=== PATIENT | female | born 1970 | race Caucasian/White ===

== ENCOUNTER → 2016-03-27 | Outpatient (CLI) | payer BC ==
--- NOTE | 2016-03-27 14:58 | CT ---
EXAMINATION TYPE: CT chest w con DATE OF EXAM: 03/27/2016 2:44 PM COMPARISON: NONE HISTORY: Dyspnea CT DLP: 804 mGycm. Automated Exposure Control for Dose Reduction was Utilized. TECHNIQUE: CT scan of the thorax is performed following with IV Contrast, patient injected with 100 ml mL of Omnipaque 300. FINDINGS: LUNGS: Small area of linear atelectasis in the lingula is present seen best coronal image 28 otherwis e the lungs are grossly clear, there is no concerning parenchymal mass or nodule identified. There is no pleural effusion or pneumothorax seen bilaterally. The tracheobronchial tree is patent. MEDIASTINUM: There are no greater than 1 cm hilar or mediastinal lymph nodes. There are slightly pro minent but subcentimeter paracarinal and subcarinal lymph nodes. No cardiomegaly or pericardial effus ion is seen. OTHER: There is 13 x 6 mm oval low dense lesion left hepatic dome presumed benign. Spine is mildly en larged at 13.7 cm on axial image 54. IMPRESSION: No significant acute or chronic pulmonary process. Results communicated to ordering physician via telephone as requested at time of dictation. Patient i nstructed to return to physician office for further treatment. A Document Only message has been documented for Syd Mason MD in the [employer] system on 03/27/2016 2:56 PM, Message ID [id number].
== END | disposition home or self-care (01) ==
LOC: RADCTMAIN 13:56
PROVIDERS: ATTEND Family Medicine
DX: R06.00 Dyspnea, unspecified (principal)
CPT/HCPCS: 71260; Q9967

== ENCOUNTER → 2016-09-05 | Outpatient (CLI) | payer BC ==
--- NOTE | 2016-09-06 08:59 | MM ---
Reason for exam: screening (asymptomatic). Last mammogram was performed 1 year and 3 months ago. History: Patient is postmenopausal and is nulliparous. Benign excisional biopsy of the left breast, 2005. Taking estrogen for 2 years beginning at age 40. Physical Findings: A clinical breast exam by your physician is recommended on an annual basis and results should be correlated with mammographic findings. MG Screening Mammo w CAD Bilateral CC and MLO view(s) were taken. Prior study comparison: June 05, 2015, bilateral MG screening mammo w CAD. April 09, 2013, CAD bilateral diagnostic mammogram. The breast tissue is extremely dense which could obscure a lesion on mammography. No significant changes when compared with prior studies. ASSESSMENT: Benign, BI-RAD 2 RECOMMENDATION: Routine screening mammogram of both breasts in 1 year.
== END | disposition home or self-care (01) ==
LOC: RADMAMWWP 13:44
PROVIDERS: ATTEND Family Medicine
DX: Z12.31 Encounter for screening mammogram for malignant neoplasm of breast (principal)

== ENCOUNTER → 2017-11-25 | Outpatient (CLI) | payer BC ==
--- NOTE | 2017-11-26 09:58 | MM ---
Reason for exam: screening (asymptomatic). Last mammogram was performed 1 year and 3 months ago. History: Patient is postmenopausal and is nulliparous. Benign excisional biopsy of the left breast, 2005. Taking estrogen for 2 years beginning at age 40. Physical Findings: A clinical breast exam by your physician is recommended on an annual basis and results should be correlated with mammographic findings. MG Screening Mammo w CAD Bilateral CC and MLO view(s) were taken. Prior study comparison: September 05, 2016, bilateral MG screening mammo w CAD. June 05, 2015, bilateral MG screening mammo w CAD. The breast tissue is heterogeneously dense. This may lower the sensitivity of mammography. No suspicious abnormality. No significant changes when compared with prior studies. ASSESSMENT: Negative, BI-RAD 1 RECOMMENDATION: Routine screening mammogram of both breasts in 1 year.
== END | disposition home or self-care (01) ==
LOC: RADMAMWWP 16:19
PROVIDERS: ATTEND Internal Medicine
DX: Z12.31 Encounter for screening mammogram for malignant neoplasm of breast (principal)
CPT/HCPCS: 77067

== ENCOUNTER 2018-06-05 12:22 | Emergency (ER) | payer BC ==
[2018-06-05 12:29] VITALS: TEMP 98.5
[2018-06-05 13:31] LABS: Basophils # (A) 0.1 k/uL (0-0.2); Basophils % (A) 1 %; Eosinophils # (A) 0.4 k/uL (0-0.7); Eosinophils % (A) 4 %; HGB 13.5 gm/dL (11.4-16.0); Lymphocytes # (A) 1.6 k/uL (1.0-4.8); Lymphocytes % (A) 20 %; MCH 27.7 pg (25.0-35.0); MCHC 33.7 g/dL (31.0-37.0); MCV 82.1 fL (80.0-100.0); Mean Platelet Volume 7.1; Monocytes # (A) 0.5 k/uL (0-1.0); Monocytes % (A) 6 %; Neutrophils # (A) 5.6 k/uL (1.3-7.7); Neutrophils % (A) 68 %; Platelet Count 299 k/uL (150-450); RBC 4.87 m/uL (3.80-5.40); RDW 13.1 % (11.5-15.5); WBC 8.2 k/uL (3.8-10.6)
[2018-06-05 13:41] LABS: ALT 33 U/L (9-52); AST 20 U/L (14-36); Albumin 4.3 g/dL (3.5-5.0); Alkaline Phosphatase 84 U/L (38-126); Amylase 73 U/L (30-110); Anion Gap 8 mmol/L; Blood Urea Nitrogen 11 mg/dL (7-17); Calcium 9.7 mg/dL (8.4-10.2); Carbon Dioxide 28 mmol/L (22-30); Chloride 104 mmol/L (98-107); Glucose 95 mg/dL (74-99); Lipase 361 U/L (23-300); Potassium 4.2 mmol/L (3.5-5.1); Sodium 140 mmol/L (137-145); Total Bilirubin 0.6 mg/dL (0.2-1.3); Total Protein 6.8 g/dL (6.3-8.2)
[2018-06-05 13:51] LABS: Appearance,Urine Clear (Clear); Bilirubin,Urine Negative (Negative); Blood,Urine Negative (Negative); Color,Urine Yellow; Glucose,Urine (UA) Negative (Negative); Ketones,Urine Negative (Negative); Leukocyte Esterase,Urine Negative (Negative); Nitrite,Urine Negative (Negative); Protein,Urine Negative (Negative); Specific Gravity,Urine 1.014 (1.001-1.035); Urobilinogen,Urine <2.0 mg/dL (<2.0)
--- NOTE | 2018-06-05 13:53 | CT ---
EXAMINATION TYPE: CT abdomen pelvis w con DATE OF EXAM: 06/05/2018 COMPARISON: 03/11/2009 INDICATION: LUQ pain DLP: 1063.2 mGycm, Automated exposure control for dose reduction was used. CONTRAST: 100 mL of Isovue 300. Study performed without Oral Contrast TECHNIQUE: Axial images were obtained from above the diaphragm to the pubic rami in the axial plane a t 5 mm thick sections. Reconstructed images are reviewed on the computer in the coronal plane. FINDINGS: Limited CT sections are obtained the lung bases. The lung bases are clear. CT ABDOMEN: There is some inflammatory changes in the left upper quadrant. This appears to surround t he proximal descending colon. However, some inflammatory changes extend towards the tail of the pancr eas which may has some minimal fluid adjacent. Differential diagnosis would include pancreatitis of t he tail of the pancreas and colitis versus diverticulitis of the proximal descending colon. Acute div erticulitis is favored.. Correlate with patient's symptoms and laboratory findings. Liver: Normal Spleen: Normal Pancreas: Small amount of fluid may be at the tail of the pancreas with some mild inflammatory change s extending towards the adjacent splenic flexure. Adrenal glands: The adrenal glands are normal. Gallbladder: Normal Kidneys: No masses are evident. No hydronephrosis is present. No cysts are present. Delayed images were obtained through the kidneys, which remain unremarkable. Aorta: Vascular calcification is within the aorta. Inferior vena cava: Normal. CT PELVIS: There are inflammatory changes adjacent to the splenic flexure. Findings could be related to acute di verticulitis. Diverticulum is at the splenic flexure. Some colitis could be considered. Inflammatory change could be extension from the tail of the pancreas however. Study is performed without oral cont rast limiting bowel evaluation. Multiple diverticuli are through the sigmoid colon. Appendix: Normal as visualized. Urinary bladder: Normal. Genitourinary structures: Uterus and ovaries are absent. Osseous structures: No suspicious lytic or sclerotic lesions. IMPRESSIONS: 1. Inflammatory changes at the splenic flexure extending to the tail of the pancreas. Acute divertic ulitis is suspected without abscess formation. Differential could include colitis and pancreatitis at the tail of the pancreas. Correlate with patient's clinical and laboratory results.
[2018-06-05] MEDS ORDERED: AMOXIC-POT CLAV 875MG STARTER 2 EACH TABLET PO STA (14:19)
--- NOTE | 2018-06-05 14:21 | ED ---
Abdominal Pain HPI - General Chief Complaint: Abdominal Pain Stated Complaint: abd pain Time Seen by Provider: 06/05/18 12:31 Source: patient Mode of arrival: ambulatory Limitations: no limitations - History of Present Illness Initial Comments: 47-year-old female presenting today for abdominal pain 3 weeks. Patient states she has had pain in the mid back wrapping to the left side of the abdomen she states it fluctuates in intensity from 3 to about a 9. She states her father, likely diverticulitis because it runs in the family. Patient states it stabbing sometimes feel like a twisting pain shift as a chest pain dyspnea dysuria or urgency frequency or hematuria. Patient states she does have history of kidney stones however this does not feel similar to the pain. Patient states she has a CT with contrast scheduled as well as a colonoscopy however she did not want to wait any longer for the workup and presented to department for evaluation. Patient states the pain had increased and is more so prompted the visit. Remaining ROS (-) Upon arrival pt appears well. No signs of toxicity or distress grossly. - Related Data Home Medications Medication Instructions Recorded Confirmed Adrenal Gland Supplement 1 tab PO DAILY 06/05/18 06/05/18 Ascorbic Acid [Vitamin C] 500 mg PO DAILY 06/05/18 06/05/18 Fish Oil/Dha/Epa [Fish Oil 1,200 1 cap PO DAILY 06/05/18 06/05/18 mg Fish Oil] Prasterone (Dhea) [Dhea] 50 mg PO DAILY 06/05/18 06/05/18 Pyridoxine HCl (Vitamin B6) 100 mg PO DAILY 06/05/18 06/05/18 [Vitamin B-6] Spironolactone 100 mg PO DAILY 06/05/18 06/05/18 Previous Rx's Medication Instructions Recorded Amoxicillin/Potassium Clav 1 tab PO Q12HR 14 Days #28 tab 06/05/18 [Augmentin 875-125 Tablet] Allergies Allergy/AdvReac Type Severity Reaction Status Date / Time bupropion HCl Allergy Rash/Hives Verified 06/05/18 13:17 [From Wellbutrin] gluten Allergy Unknown Verified 06/05/18 13:17 wheat Allergy Unknown Verified 06/05/18 13:17 Review of Systems ROS Statement: Those systems with pertinent positive or pertinent negative responses have been documented in the HPI. ROS Other: All systems not noted in ROS Statement are negative. Past Medical History Past Medical History: Asthma, GERD/Reflux Additional Past Medical History / Comment(s): Interstitial Cystitis History of Any Multi-Drug Resistant Organisms: None Reported Past Surgical History: Hysterectomy Additional Past Surgical History / Comment(s): Hiatal hernia,. Marnie, 2009, EGD/colonoscopy 02/15/14 Past Anesthesia/Blood Transfusion Reactions: Previous Problems w/ Anesthesia Additional Past Anesthesia/Blood Transfusion Reaction / Comment(s): Trouble breathing after intubation removed with diff breathing and swallowing Past Psychological History: No Psychological Hx Reported Smoking Status: Former smoker Past Alcohol Use History: Occasional, Rare Past Drug Use History: None Reported - Past Family History Father Family Medical History: Deep Vein Thrombosis (DVT) General Exam - General Exam Comments Initial Comments: General: The patient is awake and alert, in no distress, and does not appear acutely ill. Eye: +3 mm pupils are equal, round and reactive to light, extra-ocular movements are intact. No APD No nystagmus. There is normal conjunctiva bilaterally. No signs of icterus. Ears, nose, mouth and throat: There are moist mucous membranes and no oral lesions. Neck: The neck is supple, there is no tenderness or JVD. Cardiovascular: There is a regular rate and rhythm. No murmur, rub or gallop is appreciated. Respiratory: Lungs are clear to auscultation, respirations are non-labored, breath sounds are equal. No wheezes, stridor, rales, or rhonchi. Gastrointestinal: No noted diaphoresis, jaundice, pallor, protecting postures or squirming. Symmetrical pigmentation of abdomen without signs of inflammation. Umbilicus mildline, inverted without swelling. No dilated veins. Abdomen contour obese, no noted abdominal distention. No visible masses. No peristalsis, aortic pulsations, or ventral hernia. Bowel sounds audible in all 4 quadrants, unremarkable. No friction rubs or venous hums. No epigastic, hepatic or abdominal bruits. Abdominal pain with rebound tenderness in the LLQ, no other area of tenderness or pain. Liver edge, not palpable. Spleen edge, right and left kidney not palpable. Superior bladder margin non-tender. Special Testing: Negative [place], Rovsing, McBurney, Ellie, cutaneous hyperesthesia. Iliopsoas and obturator tests negative bilaterally. Negative Heel Jar test. No CVA tenderness. Digital rectal exam deferred. Negative lindo turners or cullens sign Musculoskeletal: Normal ROM, no tenderness. Strength 5/5. Sensation intact. Pulses equal bilaterally 2+. Neurological: A&O x 3. CN II-XII intact, There are no obvious motor or sensory deficits. Coordination appears grossly intact. Speech is normal. Skin: Skin is warm and dry and no rashes or lesions are noted. Psychiatric: Cooperative, appropriate mood & affect, normal judgment. NIH Stroke Scale/Score 06/05/2018 1A: Level of consciousness > 0 = Alert; keenly responsive 1B: Ask month and age > 0 = Both questions right 1C: 'Blink eyes' & 'squeeze hands' > 0 = Performs both tasks 2: Horizontal extraocular movements > 0 = Normal 3: Visual gomez > 0 = No visual loss 4: Facial palsy > 0 = Normal symmetry 5A: Left arm motor drift > 0 = No drift for 10 seconds 5B: Right arm motor drift > 0 = No drift for 10 seconds 6A: Left leg motor drift > 0 = No drift for 5 seconds 6B: Right leg motor drift > 0 = No drift for 5 seconds 7: Limb Ataxia > 0 = No ataxia 8: Sensation > 1 = Mild-moderate loss: less sharp/more dull 9: Language/aphasia > 0 = Normal; no aphasia 10: Dysarthria > 0 = Normal 11: Extinction/inattention > 0 = No abnormality Score: 1 Limitations: no limitations Course Vital Signs 06/05/18 06/05/18 06/05/18 12:26 14:33 16:24 Temperature 98.5 F Pulse Rate 80 Respiratory 20 Rate Blood Pressure 177/109 167/94 165/111 O2 Sat by Pulse 99 Oximetry - Reevaluation(s) Reevaluation #1: At 3:44PM patient states she has the revision, she states this happened last week and resulted with water. Patient denies any other deficits. NIH 1 patient states it seemed as though she had a slight difference to palpation of the left upper arm compared to the right upper arm. CT, CT angiogram were obtained at this time. I discussed the case immediately with attending provider Dr. Verdin Reevaluation #2: Pt states 30 minutes later that she is symptoms free. NIH 0. Pt BP elevated. EKG obtained, compared to results of holter monitor report which states patient has baseline RBBB. No ST elevation or depression. CXR WNL. Reevaluation #3: Spoke with Dr. Street at [facility], she accepted transfer pending discussion with interventional neurologist Dr. Monteiro. Dr. Monteiro was paged at 16:15 06/05/18 16:15 Medical Decision Making - Medical Decision Making 47 year old female presenting today for chief complaint of abdominal pain x 3 weeks. Patient had an discharge she was complaining of diplopia. I did discuss the case with attending provider immediately, Dr Verdin. Patient was hypertensive at this time. Patient was unable to decipher whether it was 1 eye or both. NIH 1. Patient sent down for CTA, CT without contrast. No acute abnormalities. I spoke with neuro interventionalist Dr. Muniz who recommended aspirin and MRI at the transferring facility. EKG revealed a RBBB, after reviewing chart this appears to have be patient baseline. Troponin (-). She was given oral Augmentin earlier when patient was scheduled for discharge. Symptoms resolved. Suspected ddx include hypertensive emergency, TIA, MS. I discussed findings with patient. Patient is agreeable transfer to [facility]. I spoke with Dr Street who accepted patient transfer. Pt is agreeable with transfer. Pt discharged appearing well. - Lab Data Result diagrams: 06/05/18 13:05 06/05/18 13:05 Lab Results 06/05/18 06/05/18 06/05/18 Range/Units 13:05 13:05 13:05 WBC 8.2 (3.8-10.6) k/uL RBC 4.87 (3.80-5.40) m/uL Hgb 13.5 (11.4-16.0) gm/dL Hct 40.0 (34.0-46.0) % MCV 82.1 (80.0-100.0) fL MCH 27.7 (25.0-35.0) pg MCHC 33.7 (31.0-37.0) g/dL RDW 13.1 (11.5-15.5) % Plt Count 299 (150-450) k/uL Neutrophils % 68 % Lymphocytes % 20 % Monocytes % 6 % Eosinophils % 4 % Basophils % 1 % Neutrophils # 5.6 (1.3-7.7) k/uL Lymphocytes # 1.6 (1.0-4.8) k/uL Monocytes # 0.5 (0-1.0) k/uL Eosinophils # 0.4 (0-0.7) k/uL Basophils # 0.1 (0-0.2) k/uL Sodium 140 (137-145) mmol/L Potassium 4.2 (3.5-5.1) mmol/L Chloride 104 (98-107) mmol/L Carbon Dioxide 28 (22-30) mmol/L Anion Gap 8 mmol/L BUN 11 (7-17) mg/dL Creatinine 0.63 (0.52-1.04) mg/dL Est GFR (CKD-EPI)AfAm >90 (>60 ml/min/1.73 sqM) Est GFR (CKD-EPI)NonAf >90 (>60 ml/min/1.73 sqM) Glucose 95 (74-99) mg/dL Calcium 9.7 (8.4-10.2) mg/dL Total Bilirubin 0.6 (0.2-1.3) mg/dL AST 20 (14-36) U/L ALT 33 (9-52) U/L Alkaline Phosphatase 84 (38-126) U/L Troponin I (0.000-0.034) ng/mL Total Protein 6.8 (6.3-8.2) g/dL Albumin 4.3 (3.5-5.0) g/dL Amylase 73 (30-110) U/L Lipase 361 H (23-300) U/L Urine Color Yellow Urine Appearance Clear (Clear) Urine pH 6.0 (5.0-8.0) Ur Specific [place] 1.014 (1.001-1.035) Urine Protein Negative (Negative) Urine Glucose (UA) Negative (Negative) Urine Ketones Negative (Negative) Urine Blood Negative (Negative) Urine Nitrite Negative (Negative) Urine Bilirubin Negative (Negative) Urine Urobilinogen <2.0 (<2.0) mg/dL Ur Leukocyte Esterase Negative (Negative) 06/05/18 Range/Units 13:05 WBC (3.8-10.6) k/uL RBC (3.80-5.40) m/uL Hgb (11.4-16.0) gm/dL Hct (34.0-46.0) % MCV (80.0-100.0) fL MCH (25.0-35.0) pg MCHC (31.0-37.0) g/dL RDW (11.5-15.5) % Plt Count (150-450) k/uL Neutrophils % % Lymphocytes % % Monocytes % % Eosinophils % % Basophils % % Neutrophils # (1.3-7.7) k/uL Lymphocytes # (1.0-4.8) k/uL Monocytes # (0-1.0) k/uL Eosinophils # (0-0.7) k/uL Basophils # (0-0.2) k/uL Sodium (137-145) mmol/L Potassium (3.5-5.1) mmol/L Chloride (98-107) mmol/L Carbon Dioxide (22-30) mmol/L Anion Gap mmol/L BUN (7-17) mg/dL Creatinine (0.52-1.04) mg/dL Est GFR (CKD-EPI)AfAm (>60 ml/min/1.73 sqM) Est GFR (CKD-EPI)NonAf (>60 ml/min/1.73 sqM) Glucose (74-99) mg/dL Calcium (8.4-10.2) mg/dL Total Bilirubin (0.2-1.3) mg/dL AST (14-36) U/L ALT (9-52) U/L Alkaline Phosphatase (38-126) U/L Troponin I <0.012 (0.000-0.034) ng/mL Total Protein (6.3-8.2) g/dL Albumin (3.5-5.0) g/dL Amylase (30-110) U/L Lipase (23-300) U/L Urine Color Urine Appearance (Clear) Urine pH (5.0-8.0) Ur Specific [place] (1.001-1.035) Urine Protein (Negative) Urine Glucose (UA) (Negative) Urine Ketones (Negative) Urine Blood (Negative) Urine Nitrite (Negative) Urine Bilirubin (Negative) Urine Urobilinogen (<2.0) mg/dL Ur Leukocyte Esterase (Negative) - EKG Data EKG Comments: Ventricular rate 70 bpm, AL interval 162 ms, to administration 102 ms, QT/QTC 390/53 ms. Normal sinus there is incomplete right bundle branch block. Left anterior fascicular block noted. No ST elevation or depression.. Disposition Clinical Impression: Diverticulitis, Diplopia, TIA (transient ischemic attack), Elevated blood pressure reading Disposition: OTHER INSTITUTION NOT DEFINED Condition: Serious Instructions (If sedation given, give patient instructions): Diverticulitis ( ED), Diverticulitis Diet (ED) Additional Instructions: Please use medication as discussed. Please follow-up with family doctor on Mondays, please follow-up with gastroenterology physician in one week. Please return to emergency room if the symptoms are persistent, INCREASE OR WORSEN or for any other concerns. Prescriptions: Amoxicillin/Potassium Clav [Augmentin 875-125 Tablet] 1 tab PO Q12HR 14 Days #28 tab Is patient prescribed a controlled substance at d/c from ED?: No Referrals: Roxanne Hoover MD [Primary Care Provider] - 1-2 days Demetria Gant MD [STAFF PHYSICIAN] - 1-2 days Time of Disposition: 14:21 - Out of Hospital Transfer - Req. Specs Out of Hospital Transfer - Requested Specifics: Other Emergency Center ([facility])
[2018-06-05] MEDS ORDERED: HYDROcodone/APAP 5-325MG 1 EACH TAB PO STA (14:22)
--- NOTE | 2018-06-05 15:08 | CT ---
EXAMINATION TYPE: CT brain wo con DATE OF EXAM: 06/05/2018 COMPARISON: None INDICATION: Multiple episodes of HTN and visual disturbances DLP: 920.6 mGycm, Automated exposure control for dose reduction was used. CONTRAST: None. There is some contrast on board from the examination performed earlier in the afterno on. Optimal contrast for contrast study however does not appear to be present. CT of the brain is performed utilizing 3 mm thick sections through the posterior fossa and 3 mm thick sections through the remaining calvarium. Study is performed within 24 hours of arrival to the hosp ital. No abnormal hyperdensity is present to suggest an acute intracranial hemorrhage. No mass lesion is evident. No acute infarcts are evident. Ventricles and sulci are appropriate for the patient age. Paranasal sinuses and mastoid air cells within the [id number] are clear. IMPRESSIONS: 1. Normal CT Brain
--- NOTE | 2018-06-05 15:42 | CT ---
EXAMINATION TYPE: CT angio head neck DATE OF EXAM: 06/05/2018 HISTORY: Multiple episodes of HTN and visual disturbances COMPARISON: None CT DLP: 516.8 mGycm. Automated Exposure Control for Dose Reduction was Utilized. TECHNIQUE: CTA scan of the neck is performed with IV Contrast, patient injected with 65 mL of Isovue 370, axial images are obtained, coronal and sagittal reformatted images are reviewed. Source images and Three-D reconstructed images are created on an independent workstation and reviewed. FINDINGS: Carotid/Vascular Structures: There is a three-vessel arch. Vertebral arteries are codominant. Some pl aquing is present at the carotid bifurcations without significant flow-limiting stenosis. Internal ca rotid arteries at the skull base are unremarkable. [place] of [place]: Internal carotid arteries bifurcate normally into A1 and M1 segments. Left A1 segme nt may be somewhat hypoplastic distally on the source images but appears normal on Three-D reconstruc silvia images. The anterior communicating artery is patent. Middle cerebral artery branches appear unrem arkable. A2 segments are normal. Vertebral basilar system appears normal. The posterior cerebral vasc ulature is normal. Posterior communicating arteries are not identified. Other: Limited CT sections are obtained the lung apices which are clear. IMPRESSION: 1. No significant flow-limiting stenosis at the carotid bifurcations. Mild plaquing with less than 50 % narrowing is present. 2. Normal [place] of [place]
[2018-06-05] MEDS ORDERED: hydrALAZINE HCL 20 MG/ML 1 ML VIAL IVP STA (15:53)
--- NOTE | 2018-06-05 16:07 | XR ---
EXAMINATION TYPE: XR chest 2V DATE OF EXAM: 06/05/2018 COMPARISON: 12/23/2011 INDICATION: Altered mental status hypertension blurred vision TECHNIQUE: Frontal and lateral views of the chest are obtained. FINDINGS: The heart size is normal. The pulmonary vasculature is normal. The lungs are clear. IMPRESSION: 1. No acute pulmonary process.
[2018-06-05] MEDS ORDERED: ASPIRIN 325 MG TAB PO STA (16:50)
[2018-06-05 18:11] VITALS: RESP 18
[2018-06-05 18:12] VITALS: BP 116/94; PULSE 101
== END 2018-06-05 18:14 | disposition other institution (70) ==
LOC: EC 12:22
DX: G45.9 Transient cerebral ischemic attack, unspecified (principal); R29.701 NIHSS score 1; K57.92 Diverticulitis of intestine, part unspecified, without perforation or abscess without bleeding; H53.2 Diplopia; I10 Essential (primary) hypertension; I45.10 Unspecified right bundle-branch block; Z87.891 Personal history of nicotine dependence; Z79.899 Other long term (current) drug therapy; Z88.8 Allergy status to other drugs, medicaments and biological substances; Z91.018 Allergy to other foods
CPT/HCPCS: 96374 ×2; 99285 ×2; 36415; 93005; 80053; 82150; 83690; 84484; 85025; 81003; 87086; 71046; 70496; 70450; 70498; 74177; J0360; Q9967 ×2

== ENCOUNTER 2018-06-26 06:17 | Day surgery (SDC) | payer BC ==
[2018-06-24 10:27] VITALS: BMI 31.8
--- NOTE | 2018-06-25 20:18 | P.GSHP ---
History of Present Illness H&P Date: 06/26/18 CHIEF COMPLAINT: Colon screen HISTORY OF PRESENT ILLNESS: The patient is a 47-year-old female who presents for colon screen. Lower endoscopy was offered for further evaluation and management. PAST MEDICAL HISTORY: Please see list. PAST SURGICAL HISTORY: Please see list. MEDICATIONS: Please see list. ALLERGIES: Please see list. SOCIAL HISTORY: No illicit drug use FAMILY HISTORY: No reports of Crohn disease or ulcerative colitis. REVIEW OF ORGAN SYSTEMS: CONSTITUTIONAL: No reports of fevers or chills. PHYSICAL EXAM: VITAL SIGNS: Stable GENERAL: Well-developed pleasant in no acute distress. HEENT: No scleral icterus. Extraocular movements grossly intact. Moist buccal mucosa. NECK: Supple without lymphadenopathy. CHEST: Unlabored respirations. Equal bilateral excursions. CARDIOVASCULAR: Regular rate and rhythm. Distal 2+ pulses. ABDOMEN: Soft, nontender, nondistended. MUSCULOSKELETAL: No clubbing, cyanosis, or edema. ASSESSMENT: 1. Colon screen. PLAN: 1. Recommend proceeding with a lower endoscopy Past Medical History Past Medical History: Asthma, Fibromyalgia, GERD/Reflux, Hypertension, Thyroid Disorder Additional Past Medical History / Comment(s): Interstitial Cystitis, migraines, fluctuating BP, palpitations, diverticulitis, borderline diabetic-watches diet, History of Any Multi-Drug Resistant Organisms: None Reported Past Surgical History: Bariatric Surgery, Bladder Surgery, Hernia Repair, Hysterectomy Additional Past Surgical History / Comment(s): Hiatal hernia repair, Lapband/later removed, EGD/colonoscopy Past Anesthesia/Blood Transfusion Reactions: Previous Problems w/ Anesthesia, Family History of Problems w/ Anesthesia, Motion Sickness Additional Past Anesthesia/Blood Transfusion Reaction / Comment(s): Trouble breathing after intubation tube removed with diff breathing and swallowing (general anesthesia). "mom gets real cold when coming out" Smoking Status: Former smoker - Past Family History Mother Family Medical History: Cancer Father Family Medical History: Cancer, Deep Vein Thrombosis (DVT) Medications and Allergies Home Medications Medication Instructions Recorded Confirmed Type Ascorbic Acid [Vitamin C] 500 mg PO DAILY 06/05/18 06/24/18 History Fish Oil/Dha/Epa [Fish Oil 1,200 1 cap PO DAILY 06/05/18 06/24/18 History mg Fish Oil] Pyridoxine HCl (Vitamin B6) 100 mg PO DAILY 06/05/18 06/24/18 History [Vitamin B-6] Spironolactone 100 mg PO DAILY 06/05/18 06/24/18 History Berbine 1 cap PO BID 06/24/18 06/24/18 History Levothyroxine Sodium [Synthroid] 25 mcg PO DAILY 06/24/18 06/24/18 History Multivitamins, Thera [Multivitamin 1 tab PO DAILY 06/24/18 06/24/18 History (formulary)] Allergies Allergy/AdvReac Type Severity Reaction Status Date / Time bupropion HCl Allergy Rash/Hives Verified 06/24/18 10:15 [From Wellbutrin] gluten Allergy Unknown Verified 06/24/18 10:15 wheat Allergy Unknown Verified 06/24/18 10:15
[~2018-06-26 06:17] MED LIST: DEXAMETHASONE SOD PHOSPHATE 10 MG/ML 1 ML VIAL IV ONE; HYDROmorphone 0.5 MG/0.5 ML SYRINGE IVP PRN; LACTATED RINGERS 1,000 ML IV SCH; LIDOCAINE 1% 20 ML VIAL (10MG/ML) FOR IV START INTRADERMA PRN; MIDAZOLAM (PF) 2 MG/2 ML VIAL IV PRN; ONDANSETRON 4 MG/2 ML VIAL IVP ONE; SCOPOLAMINE 1.5MG/72HR PATCH TRANSDERM ONE
[2018-06-26 06:51] VITALS: TEMP 97.2
[2018-06-26 06:56] LABS: Glucose,Whole Blood 99 mg/dL (75-99)
[2018-06-26] MEDS ORDERED: PROPOFOL 10 MG/ML 20 ML VIAL IV ONE (07:03)
--- NOTE | 2018-06-26 07:15 | P.HPADDEND ---
H&P Addendum H&P Addendum Date: 06/26/18 Patient reports having diverticulitis 3 weeks ago. No current abdominal pain. No fevers or chills. Increased risk for perforation described with proceeding with colonoscopy. Patient agreed to proceed.
--- NOTE | 2018-06-26 07:46 | P.PCN ---
Date of Procedure: 06/26/18 Description of Procedure: PREOPERATIVE DIAGNOSIS: Personal history of colon polyps. History of diverticulitis POSTOPERATIVE DIAGNOSIS: Personal history of colon polyps. History of diverticulitis Ulcerative colitis, diffuse, chronic OPERATION: Colonoscopy to the ileocecal valve and appendiceal orifice. Colonoscopy with multiple cold forceps biopsies. SURGEON: Stella Cazares MD. ANESTHESIA: MAC. INDICATIONS: The patient is a 47-year-old female who presents for colonoscopy screening. Her last colonoscopy was 5 years ago. Benefits and risks were described and informed consent was obtained. DESCRIPTION OF PROCEDURE: The patient had undergone Suprep. She had been brought into the operating room and laid in the left lateral decubitus position. After adequate intravenous sedation, the rectum was examined with 2% lidocaine jelly. No external hemorrhoids were encountered. The rectal tone was within normal limits. No lesions were palpated in the rectal vault. An Olympus colonoscope was advanced until the ileocecal valve and appendiceal orifice were clearly viewed. The prep was good. Moderate large mouth sigmoid diverticulosis was encountered with evidence of recent diverticulitis. No colonic polyps were found. Small punctate cryptic mucosal lesions were found throughout the colon consistent with colitis with cold forceps biopsies obtained along the ileocecal valve and ascending colon. No internal hemorrhoids were found. The colon was desufflated. The patient had tolerated the procedure well. Withdrawal time was over 6 minutes. FINDINGS: Aronchick preparation quality scale 2 (1-5) No internal hemorrhoids No external hemorrhoids No arteriovenous malformations Small punctate cryptic mucosal lesions were found throughout the colon consistent with colitis with cold forceps biopsies obtained along the ileocecal valve and ascending colon. No adenomatous polyps Moderate large mouth sigmoid diverticulosis was encountered with evidence of recent diverticulitis. RECOMMENDATIONS: Repeat colonoscopy in 5 years, 2023 Plan - Discharge Summary Discharge Rx Participant: No New Discharge Prescriptions: No Action Pyridoxine HCl (Vitamin B6) [Vitamin B-6] 100 mg PO DAILY Ascorbic Acid [Vitamin C] 500 mg PO DAILY Spironolactone 100 mg PO DAILY Fish Oil/Dha/Epa [Fish Oil 1,200 mg Fish Oil] 1 cap PO DAILY Multivitamins, Thera [Multivitamin (formulary)] 1 tab PO DAILY Berbine 1 cap PO BID Levothyroxine Sodium [Synthroid] 25 mcg PO DAILY Discharge Medication List Ascorbic Acid [Vitamin C] 500 mg PO DAILY 06/05/18 [History] Fish Oil/Dha/Epa [Fish Oil 1,200 mg Fish Oil] 1 cap PO DAILY 06/05/18 [History] Pyridoxine HCl (Vitamin B6) [Vitamin B-6] 100 mg PO DAILY 06/05/18 [History] Spironolactone 100 mg PO DAILY 06/05/18 [History] Berbine 1 cap PO BID 06/24/18 [History] Levothyroxine Sodium [Synthroid] 25 mcg PO DAILY 06/24/18 [History] Multivitamins, Thera [Multivitamin (formulary)] 1 tab PO DAILY 06/24/18 [History] Follow up Appointment(s)/Referral(s): Stella Cazares MD [STAFF PHYSICIAN] - 07/15/18 Patient Instructions/Handouts: Ulcerative Colitis (DC), Diverticulosis Diet (GEN), Diverticulosis (ED) Activity/Diet/Wound Care/Special Instructions: Repeat colonoscopy in 5 years, 2023 Discharge Disposition: HOME SELF-CARE
[2018-06-26 07:59] VITALS: BP 112/76; PULSE 70; RESP 16
== END 2018-06-26 08:29 | disposition home or self-care (01) ==
LOC: ORWHC2ENDO 06:17
PROVIDERS: ATTEND Surgery Plastic and Reconstructive Surgery
DX: Z12.11 Encounter for screening for malignant neoplasm of colon (principal); K57.30 Diverticulosis of large intestine without perforation or abscess without bleeding; K51.90 Ulcerative colitis, unspecified, without complications; Z86.010 Personal history of colon polyps; J45.909 Unspecified asthma, uncomplicated; M79.7 Fibromyalgia; K21.9 Gastro-esophageal reflux disease without esophagitis; I10 Essential (primary) hypertension; E07.9 Disorder of thyroid, unspecified; Z87.891 Personal history of nicotine dependence; Z80.9 Family history of malignant neoplasm, unspecified; Z79.890 Hormone replacement therapy; Z79.899 Other long term (current) drug therapy; Z88.8 Allergy status to other drugs, medicaments and biological substances; Z91.018 Allergy to other foods
CPT/HCPCS: 88305; 45380; J2704

== ENCOUNTER 2019-05-31 22:23 | Emergency (ER) | payer OTHER ==
[2019-05-31 22:38] VITALS: RESP 18; TEMP 97.8
[2019-05-31] MEDS ORDERED: MORPHINE SULFATE 4 MG/ML SYRINGE IV STA (23:07)
[2019-05-31] MEDS ORDERED: SODIUM CHLORIDE 0.9% 1,000 ML IV STA (23:07)
[2019-05-31 23:32] LABS: Basophils % (A) 0 %; Eosinophils # (A) 0.2 k/uL (0-0.7); Eosinophils % (A) 2 %; HCT 43.7 % (34.0-46.0); HGB 14.5 gm/dL (11.4-16.0); Lymphocytes # (A) 1.9 k/uL (1.0-4.8); Lymphocytes % (A) 22 %; MCH 27.5 pg (25.0-35.0); MCHC 33.2 g/dL (31.0-37.0); MCV 82.7 fL (80.0-100.0); Mean Platelet Volume 7.7; Monocytes # (A) 0.6 k/uL (0-1.0); Monocytes % (A) 7 %; Neutrophils # (A) 5.8 k/uL (1.3-7.7); Neutrophils % (A) 67 %; Platelet Count 242 k/uL (150-450); RBC 5.28 m/uL (3.80-5.40); RDW 13.3 % (11.5-15.5); WBC 8.7 k/uL (3.8-10.6)
[2019-05-31 23:35] LABS: Appearance,Urine Clear (Clear); Bilirubin,Urine Negative (Negative); Blood,Urine Negative (Negative); Color,Urine Yellow; Glucose,Urine (UA) Negative (Negative); Ketones,Urine Negative (Negative); Leukocyte Esterase,Urine Small (Negative); Mucus,Urine Rare /hpf; Nitrite,Urine Negative (Negative); PH, Urine 5.5 (5.0-8.0); Protein,Urine Negative (Negative); RBC,Urine 1 /hpf (0-5); Specific Gravity,Urine 1.013 (1.001-1.035); Squamous Epithelial Cell,Urine 1 /hpf (0-4); Urobilinogen,Urine <2.0 mg/dL (<2.0); WBC,Urine 11 /hpf (0-5)
[2019-05-31 23:46] LABS: ALT 31 U/L (4-34); AST 28 U/L (14-36); African American GFR (CKD) >90 (>60 ml/min/1.73 sqM); Albumin 4.6 g/dL (3.5-5.0); Alkaline Phosphatase 90 U/L (38-126); Anion Gap 9 mmol/L; Blood Urea Nitrogen 14 mg/dL (7-17); Calcium 9.8 mg/dL (8.4-10.2); Carbon Dioxide 26 mmol/L (22-30); Chloride 104 mmol/L (98-107); Glucose 105 mg/dL (74-99); Non-African American GFR(CKD) >90 (>60 ml/min/1.73 sqM); Potassium 4.4 mmol/L (3.5-5.1); Sodium 139 mmol/L (137-145); Total Bilirubin 0.4 mg/dL (0.2-1.3); Total Protein 7.2 g/dL (6.3-8.2)
[2019-05-31] MEDS ORDERED: HYDROmorphone 1 MG/ML 1 ML SYRINGE IVP STA (23:57)
--- NOTE | 2019-06-01 00:14 | CT ---
EXAMINATION TYPE: CT abdomen pelvis w con DATE OF EXAM: 06/01/2019 COMPARISON: 06/05/2018 HISTORY: RLQ Abd Pain CT DLP: 1227.90 mGycm Automated exposure control for dose reduction was used. CONTRAST: Performed with IV Contrast, patient injected with 100 mL of Isovue 300. Lung bases are clear. There is no pleural effusion. Heart size is normal. There is no pericardial eff usion. There is small hiatal hernia. There is 2 cm cyst in the left lobe of the liver. Bile ducts are not dilated. Gallbladder appears nor mal. Spleen and pancreas appear normal. There is no adrenal mass. Kidneys show satisfactory contrast opacification. There is no hydronephrosi s. Ureters are not dilated. Delayed images show normal renal excretion. Bladder distends smoothly. Th ere is no inguinal hernia. There is no free fluid in the pelvis. There are numerous sigmoid diverticu la. The appendix is posterior and appears normal. There is no mesenteric edema. There is no ascites o r free air. There is no evidence of a bowel obstruction. There is hysterectomy. Lumbar vertebra have fairly normal spacing and alignment. Bony pelvis is intact. There is no compress ion fracture. IMPRESSION: Moderately severe sigmoid diverticulosis without diverticulitis. Normal appendix. No sign of acute ab domen and pelvis. There is clearing of the inflammatory changes at the splenic flexure of the colon c ompared to old exam.
--- NOTE | 2019-06-01 00:28 | ED ---
General Adult HPI - General Chief complaint: Back Pain/Injury Stated complaint: Back/Hip Pain Time Seen by Provider: 05/31/19 22:55 Source: patient, RN notes reviewed, old records reviewed Mode of arrival: ambulatory Limitations: no limitations - History of Present Illness Initial comments: 48-year-old female patient past history significant for hysterectomy, lap band which was removed, presents to ED with chief complaint of right lower flank/right lower quadrant abdominal pain. Patient was of the pain has been ongoing for 4 days. He reports that it has been getting progressively worse. She does state that it is worse with range of motion. She denies any nausea vomiting or diarrhea. Denies any injury. Systemic: Pt denies fatigue, fever/chills, rash. Pt denies weakness, night sweats, weight loss. Neuro: Pt denies headache, visual disturbances, syncope or pre-syncope. HEENT: Pt denies ocular discharge or irritation, otalgia, rhinorrhea, ph aryngitis or notable lymphadenopathy. Cardiopulmonary: Pt denies chest pain, SOB, heart palpitations, dyspnea on exertion. Abdominal/GI: Pt denies n/v/d. : Pt denies dysuria, burning w/ urination, frequency/urgency. Denies new onset urinary or bowel incontinence. MSK: Pt denies myalgia, loss of strength or function in extremities. Neuro: Pt denies new onset weakness, paresthesias. - Related Data Home Medications Medication Instructions Recorded Confirmed Ascorbic Acid [Vitamin C] 500 mg PO DAILY 06/05/18 06/26/18 Fish Oil/Dha/Epa [Fish Oil 1,200 1 cap PO DAILY 06/05/18 06/26/18 mg Fish Oil] Pyridoxine HCl (Vitamin B6) 100 mg PO DAILY 06/05/18 06/26/18 [Vitamin B-6] Spironolactone 100 mg PO DAILY 06/05/18 06/26/18 Berbine 1 cap PO BID 06/24/18 06/26/18 Levothyroxine Sodium [Synthroid] 25 mcg PO DAILY 06/24/18 06/26/18 Multivitamins, Thera [Multivitamin 1 tab PO DAILY 06/24/18 06/26/18 (formulary)] Previous Rx's Medication Instructions Recorded metroNIDAZOLE [Flagyl] 500 mg PO BID #10 tab 05/10/19 Cephalexin [Keflex] 500 mg PO Q12HR 7 Days #14 cap 06/01/19 Cyclobenzaprine [Flexeril] 1 tab PO TID #15 tablet 06/01/19 Allergies Allergy/AdvReac Type Severity Reaction Status Date / Time bupropion HCl Allergy Rash/Hives Verified 06/26/18 06:56 [From Wellbutrin] gluten Allergy Unknown Verified 06/26/18 06:56 wheat Allergy Unknown Verified 06/26/18 06:56 Review of Systems ROS Statement: Those systems with pertinent positive or pertinent negative responses have been documented in the HPI. ROS Other: All systems not noted in ROS Statement are negative. Past Medical History Past Medical History: Asthma, GERD/Reflux Additional Past Medical History / Comment(s): Interstitial Cystitis, Diverticulitis, History of Any Multi-Drug Resistant Organisms: None Reported Past Surgical History: Hysterectomy Additional Past Surgical History / Comment(s): Hiatal hernia,. Riannaband, 2009, EGD/colonoscopy 02/15/14 Past Anesthesia/Blood Transfusion Reactions: Previous Problems w/ Anesthesia Additional Past Anesthesia/Blood Transfusion Reaction / Comment(s): Trouble b reathing after intubation removed with diff breathing and swallowing Past Psychological History: No Psychological Hx Reported Smoking Status: Former smoker Past Alcohol Use History: Occasional Past Drug Use History: None Reported - Past Family History Mother Family Medical History: Cancer Father Family Medical History: Cancer, Deep Vein Thrombosis (DVT) General Exam - General Exam Comments Initial Comments: Constitutional: NAD, AOX3, Pt has pleasant affect. HEENT: NC/AT, trachea midline, neck supple, no lymphadenopathy. Posterior pharynx non erythematous, without exudates. External ears appear normal, without discharge. Mucous membranes moist. Eyes PERRLA, EOM intact. There is no scleral icterus. No pallor noted. Cardiopulmonary: RRR, no murmurs, rubs or gallops, no JVD noted. Lungs CTAB in anterior and posterior gomez. No peripheral edema. Abdominal exam: Abdomen soft and non-distended. Abdomen mildly tender to palp ation and right lower quadrant region. Mild right lower anterior axillary line region tenderness as well. No skin changes. No guarding or rigidity. Bowel sounds active in LLQ. No hepatosplenomegaly. No ecchymosis Neuro: CN II-XII grossly intact. No nuchal rigidity. No raccon eyes, no jones sign, no hemotympanum. No cervical spinal tenderness. MSK: No posterior calf tenderness bilaterally, homans sign negative bilaterally. Posterior tibialis and radial pulse +2 bilaterally. Sensation intact in upper and lower extremities. Full active ROM in upper and lower extremities, 5/5 stregnth. Limitations: no limitations Course Vital Signs 05/31/19 22:33 Temperature 97.8 F Pulse Rate 92 Respiratory 18 Rate Blood Pressure 181/109 O2 Sat by Pulse 97 Oximetry Medical Decision Making - Medical Decision Making 48-year-old female patient past history significant for hysterectomy, lap band which was removed, presents to ED with chief complaint of right lower flank/right lower quadrant abdominal pain. Patient was of the pain has been ongoing for 4 days. He reports that it has been getting progressively worse. She does state that it is worse with range of motion. She denies any nausea vomiting or diarrhea. Denies any injury. Pt VSS, afebrile. Physical exam displayed: Abdomen soft and non-distended. Abdomen mildly tender to palpation and right lower quadrant region. Mild right lower anterior axillary line region tenderness as well. No skin changes. No guarding or rigidity. Laboratory investigations are obtained. Significant for mild uti. CT abdomen and pelvis was obtained displayed no acute process. Repeat evaluation patient describes the pain now more in her paralumbar region. Describes it as worse with range of motion. Denies any paresthesias, numbness tingling, red flag symptoms. Patient states she has however feeling improved and was able to ambulate without difficulty. Patient likely experiencing a muscular strain. Patient discharged with follow-up with primary care provider will return to ED if condition worsens. Case discussed with Dr. Chow. - Lab Data Result diagrams: 05/31/19 23:25 05/31/19 23:25 Lab Results 05/31/19 05/31/19 05/31/19 Range/Units 23:25 23:25 23:25 WBC 8.7 (3.8-10.6) k/uL RBC 5.28 (3.80-5.40) m/uL Hgb 14.5 (11.4-16.0) gm/dL Hct 43.7 (34.0-46.0) % MCV 82.7 (80.0-100.0) fL MCH 27.5 (25.0-35.0) pg MCHC 33.2 (31.0-37.0) g/dL RDW 13.3 (11.5-15.5) % Plt Count 242 (150-450) k/uL Neutrophils % 67 % Lymphocytes % 22 % Monocytes % 7 % Eosinophils % 2 % Basophils % 0 % Neutrophils # 5.8 (1.3-7.7) k/uL Lymphocytes # 1.9 (1.0-4.8) k/uL Monocytes # 0.6 (0-1.0) k/uL Eosinophils # 0.2 (0-0.7) k/uL Basophils # 0.0 (0-0.2) k/uL Sodium 139 (137-145) mmol/L Potassium 4.4 (3.5-5.1) mmol/L Chloride 104 (98-107) mmol/L Carbon Dioxide 26 (22-30) mmol/L Anion Gap 9 mmol/L BUN 14 (7-17) mg/dL Creatinine 0.70 (0.52-1.04) mg/dL Est GFR (CKD-EPI)AfAm >90 (>60 ml/min/1.73 sqM) Est GFR (CKD-EPI)NonAf >90 (>60 ml/min/1.73 sqM) Glucose 105 H (74-99) mg/dL Plasma Lactic Acid Gera (0.7-2.0) mmol/L Calcium 9.8 (8.4-10.2) mg/dL Total Bilirubin 0.4 (0.2-1.3) mg/dL AST 28 (14-36) U/L ALT 31 (4-34) U/L Alkaline Phosphatase 90 (38-126) U/L Total Protein 7.2 (6.3-8.2) g/dL Albumin 4.6 (3.5-5.0) g/dL Lipase 65 (23-300) U/L Urine Color Yellow Urine Appearance Clear (Clear) Urine pH 5.5 (5.0-8.0) Ur Specific [place]ney 1.013 (1.001-1.035) Urine Protein Negative (Negative) Urine Glucose (UA) Negative (Negative) Urine Ketones Negative (Negative) Urine Blood Negative (Negative) Urine Nitrite Negative (Negative) Urine Bilirubin Negative (Negative) Urine Urobilinogen <2.0 (<2.0) mg/dL Ur Leukocyte Esterase Small H (Negative) Urine RBC 1 (0-5) /hpf Urine WBC 11 H (0-5) /hpf Ur Squamous Epith Cells 1 (0-4) /hpf Urine Mucus Rare H (None) /hpf 05/31/19 Range/Units 23:25 WBC (3.8-10.6) k/uL RBC (3.80-5.40) m/uL Hgb (11.4-16.0) gm/dL Hct (34.0-46.0) % MCV (80.0-100.0) fL MCH (25.0-35.0) pg MCHC (31.0-37.0) g/dL RDW (11.5-15.5) % Plt Count (150-450) k/uL Neutrophils % % Lymphocytes % % Monocytes % % Eosinophils % % Basophils % % Neutrophils # (1.3-7.7) k/uL Lymphocytes # (1.0-4.8) k/uL Monocytes # (0-1.0) k/uL Eosinophils # (0-0.7) k/uL Basophils # (0-0.2) k/uL Sodium (137-145) mmol/L Potassium (3.5-5.1) mmol/L Chloride (98-107) mmol/L Carbon Dioxide (22-30) mmol/L Anion Gap mmol/L BUN (7-17) mg/dL Creatinine (0.52-1.04) mg/dL Est GFR (CKD-EPI)AfAm (>60 ml/min/1.73 sqM) Est GFR (CKD-EPI)NonAf (>60 ml/min/1.73 sqM) Glucose (74-99) mg/dL Plasma Lactic Acid Gera 0.7 (0.7-2.0) mmol/L Calcium (8.4-10.2) mg/dL Total Bilirubin (0.2-1.3) mg/dL AST (14-36) U/L ALT (4-34) U/L Alkaline Phosphatase (38-126) U/L Total Protein (6.3-8.2) g/dL Albumin (3.5-5.0) g/dL Lipase (23-300) U/L Urine Color Urine Appearance (Clear) Urine pH (5.0-8.0) Ur Specific [place] (1.001-1.035) Urine Protein (Negative) Urine Glucose (UA) (Negative) Urine Ketones (Negative) Urine Blood (Negative) Urine Nitrite (Negative) Urine Bilirubin (Negative) Urine Urobilinogen (<2.0) mg/dL Ur Leukocyte Esterase (Negative) Urine RBC (0-5) /hpf Urine WBC (0-5) /hpf Ur Squamous Epith Cells (0-4) /hpf Urine Mucus (None) /hpf Disposition Clinical Impression: Flank pain, Abdominal pain, UTI (urinary tract infection), Myalgia Disposition: HOME SELF-CARE Condition: Stable Instructions (If sedation given, give patient instructions): Abdominal Pain (ED), Musculoskeletal Pain (ED), Flank Pain (ED) Additional Instructions: Take antibiotics as directed. Follow-up with primary care provider tomorrow. Return to ER if condition worsens in any way. Prescriptions: Cephalexin [Keflex] 500 mg PO Q12HR 7 Days #14 cap Is patient prescribed a controlled substance at d/c from ED?: No Referrals: Roxanne Hoover MD [Primary Care Provider] - 1-2 days
[2019-06-01] MEDS ORDERED: CEPHALEXIN 500MG STARTER PACK 4 CAP BTL PO STA (00:30)
[2019-06-01] MEDS ORDERED: ACET/COD 300 MG/30 MG STARTER PACK 6 TAB BTL PO STA (01:18)
[2019-06-01] MEDS ORDERED: CYCLOBENZAPRINE 10MG STARTER 3 TAB BTL PO STA (01:18)
[2019-06-01 01:19] VITALS: BP 153/99; PULSE 81
== END 2019-06-01 01:28 | disposition home or self-care (01) ==
LOC: EC 22:23
DX: N39.0 Urinary tract infection, site not specified (principal); M54.9 Dorsalgia, unspecified; M25.559 Pain in unspecified hip; M79.10 Myalgia, unspecified site; Z87.19 Personal history of other diseases of the digestive system; Z90.710 Acquired absence of both cervix and uterus; Z87.891 Personal history of nicotine dependence; Z79.890 Hormone replacement therapy; Z79.899 Other long term (current) drug therapy; Z88.8 Allergy status to other drugs, medicaments and biological substances; Z91.018 Allergy to other foods
CPT/HCPCS: 36415; 80053; 83605; 83690; 85025; 81001; 87086; 74177; 99284; 96374; 96375; 96361; J2270; J1170; Q9967

== ENCOUNTER → 2020-11-22 | Outpatient (CLI) | payer OTHER ==
--- NOTE | 2020-11-22 11:03 | FL ---
EXAMINATION TYPE: FL barium swallow DATE OF EXAM: 11/22/2020 COMPARISON: None HISTORY: Dysphagia choking sensation in throat greater on the right TECHNIQUE: A double air contrast esophagram study is performed. FINDINGS: Esophagus dilates to normal caliber and has normal contour to the gastroesophageal junction. Gastroes ophageal junction opens to normal caliber. There may be some mild persistence of the cricopharyngeus muscle during the examination. A small sliding-type hiatal hernia is evident. No reflux or presbyesophagus evident. There is complete stripping of esophageal Bowls the horizontal drinking position 3 Fluoroscopy time: 16 seconds Images: 97 IMPRESSIONS: 1. There may be some mild persistence of the cricopharyngeus muscle during swallowing. 2. Small self reducing sliding type hiatal hernia. 3. Esophagram otherwise appears unremarkable.
== END | disposition home or self-care (01) ==
LOC: RADUSWWP 09:53
PROVIDERS: ATTEND Otolaryngology
DX: K44.9 Diaphragmatic hernia without obstruction or gangrene (principal)
CPT/HCPCS: 74220

== ENCOUNTER → 2020-12-27 | Outpatient (CLI) | payer OTHER ==
--- NOTE | 2020-12-27 15:22 | CT ---
EXAMINATION TYPE: CT soft tissue neck w con DATE OF EXAM: 12/27/2020 1:10 PM COMPARISON: None HISTORY: Right neck mass R 22.1 CT DLP: 680 mGycm Automated exposure control for dose reduction was used. CONTRAST: CT scan of the neck is performed following with IV Contrast, patient injected with 100 ml mL of Isovu e 300. Axial images are obtained, coronal and sagittal reformatted images are reviewed. FINDINGS: Dental amalgam causes streak artifact and may reduce sensitivity of the exam Airway: No gross abnormality seen. Parotid/submandibular glands: No gross abnormality seen. There are likely nonenlarged lymph nodes pr esent within the parotid glands. Carotid/Vascular Structures: There is normal vascular enhancement. Mild atheromatous changes are pres ent at the carotid bifurcation on the right. Osseous Structures: Unremarkable Other: No evident adenopathy IMPRESSION: Nonspecific findings above
== END | disposition home or self-care (01) ==
LOC: RADCTMAIN 12:18
PROVIDERS: ATTEND Otolaryngology
DX: R22.1 Localized swelling, mass and lump, neck (principal)
CPT/HCPCS: 82607; 82306; 70491; 36415; Q9967

== ENCOUNTER → 2021-03-23 | Outpatient (CLI) | payer OTHER | END | disposition home or self-care (01) | LOC: LABPAT 13:04 | PROVIDERS: ATTEND Surgery Plastic and Reconstructive Surgery | DX: Z20.822 Contact with and (suspected) exposure to COVID-19 (principal) | CPT/HCPCS: U0003; C9803; U0005 ==

== ENCOUNTER 2021-03-28 06:59 | Day surgery (SDC) | payer OTHER ==
[2021-03-26 10:35] VITALS: BMI 34.5
[~2021-03-28 06:59] MED LIST changes: -DEXAMETHASONE SOD PHOSPHATE 10 MG/ML 1 ML VIAL IV ONE; -HYDROmorphone 0.5 MG/0.5 ML SYRINGE IVP PRN; +LIDOCAINE 1% (10MG/ML) FOR IV START INTRADERMA PRN; -LIDOCAINE 1% 20 ML VIAL (10MG/ML) FOR IV START INTRADERMA PRN; -MIDAZOLAM (PF) 2 MG/2 ML VIAL IV PRN; -ONDANSETRON 4 MG/2 ML VIAL IVP ONE; -SCOPOLAMINE 1.5MG/72HR PATCH TRANSDERM ONE
[2021-03-28 07:20] VITALS: TEMP 97.7
[2021-03-28] MEDS ORDERED: LACTATED RINGERS 1,000 ML IV ONE (07:28)
[2021-03-28 07:33] LABS: Glucose,Whole Blood 111 mg/dL (75-99)
--- NOTE | 2021-03-28 08:06 | P.GSHP ---
History of Present Illness H&P Date: 03/28/21 CHIEF COMPLAINT: GERD HISTORY OF PRESENT ILLNESS: The patient is a 50-year-old female who presents reports gastroesophageal reflux disease. Upper endoscopy was offered for further evaluation and management. PAST MEDICAL HISTORY: Please see list. PAST SURGICAL HISTORY: Please see list. MEDICATIONS: Please see list. ALLERGIES: Please see list. SOCIAL HISTORY: No illicit drug use FAMILY HISTORY: No reports of Crohn disease or ulcerative colitis. REVIEW OF ORGAN SYSTEMS: CONSTITUTIONAL: No reports of fevers or chills. GI: Denies any blood in stools or constipation. PHYSICAL EXAM: VITAL SIGNS: Stable GENERAL: Well-developed and pleasant in no acute distress. HEENT: No scleral icterus. Extraocular movements grossly intact. Moist buccal mucosa. NECK: Supple without lymphadenopathy. CHEST: Unlabored respirations. Equal bilateral excursions. CARDIOVASCULAR: Regular rate and rhythm. Distal 2+ pulses. ABDOMEN: Soft, nondistended. MUSCULOSKELETAL: No clubbing, cyanosis, or edema. ASSESSMENT: 1. Gastroesophageal reflux disease PLAN: 1. Recommend proceeding with an upper endoscopy Past Medical History Past Medical History: Asthma, Fibromyalgia, GERD/Reflux, Hyperlipidemia, Hypertension, Thyroid Disorder Additional Past Medical History / Comment(s): Interstitial Cystitis, Diverticulitis, migraines, hiatal hernia, IBS, "borderline diabetic-diet control", hx kidney stones, diff swallowing and abdominal pain, lymes disease History of Any Multi-Drug Resistant Organisms: None Reported Past Surgical History: Bariatric Surgery, Hernia Repair, Hysterectomy Additional Past Surgical History / Comment(s): Lapband-2010/later removed, EGD/colonoscopy Past Anesthesia/Blood Transfusion Reactions: Previous Problems w/ Anesthesia, Family History of Problems w/ Anesthesia Additional Past Anesthesia/Blood Transfusion Reaction / Comment(s): Trouble breathing after intubation removed with diff breathing and swallowing, "family members feel cold after" Smoking Status: Former smoker - Past Family History Mother Family Medical History: Cancer Father Family Medical History: Deep Vein Thrombosis (DVT) Medications and Allergies Home Medications Medication Instructions Recorded Confirmed Type Spironolactone 100 mg PO DAILY 06/05/18 03/26/21 History Budesonide/Glycopyr/Formoterol 1 - 2 puff INHALATION DIRECTED 03/26/21 03/26/21 History [Breztri Aerosphere Inhaler] PRN Cyclobenzaprine [Flexeril] 5 mg PO TID PRN 03/26/21 03/26/21 History Gabapentin [Neurontin] 100 mg PO HS 03/26/21 03/26/21 History Levothyroxine Sodium [Synthroid] 50 mcg PO DAILY 03/26/21 03/26/21 History buPROPion [Wellbutrin] 100 mg PO QAM 03/26/21 03/26/21 History Allergies Allergy/AdvReac Type Severity Reaction Status Date / Time gluten Allergy Unknown Verified 03/26/21 10:20 wheat Allergy Unknown Verified 03/26/21 10:20 Surgical - Exam Vital Signs Temp Pulse Resp BP Pulse Ox 97.7 F 78 18 164/74 98 03/28/21 07:19 03/28/21 07:19 03/28/21 07:19 03/28/21 07:19 03/28/21 07:19 Results - Labs Abnormal Lab Results - Last 24 Hours (Table) 03/28/21 Range/Units 07:30 POC Glucose (mg/dL) 111 H (75-99) mg/dL
[2021-03-28] MEDS ORDERED: PROPOFOL 10 MG/ML 20 ML VIAL IV ONE (08:12)
--- NOTE | 2021-03-28 08:41 | P.OP ---
Date of Procedure: 03/28/21 Description of Procedure: PREOPERATIVE DIAGNOSIS: Gastroesophageal reflux disease Upper esophageal dysphagia Epigastric abdominal pain Globus Former tobacco use Body mass index 35.0 Hypertensive heart disease POSTOPERATIVE DIAGNOSIS: Upper esophageal stenosis Gastroesophageal reflux disease Gastritis OPERATION: Esophagogastroduodenoscopy with rigid dilator over the guidewire 54 Fr with dilation Esophagogastroduodenoscopy with cold forceps biopsies stomach/antrum SURGEON: Stella Cazares MD ANESTHESIA: MAC. INDICATIONS: The patient is a 50-year-old female who presents with dysphagia, gastroesophageal reflux disease with abdominal pain. Benefits and risks of the procedure were described. Informed consent was obtained. DESCRIPTION: The patient was brought into the endoscopy suite and laid in the left lateral decubitus position. After a timeout was confirmed, the procedure was initiated. An Olympus gastroscope was passed into the posterior oropharynx where an upper esophageal stenosis was identified. The scope was passed down to the distal esophagus. To address the upper esophageal stenosis, rigid dilator over guidewire was selected. Next using an [place]ib[place]ian rigid dilator, a guidewire was placed through the gastroscope. Next the scope was withdrawn. A 54-Afghan rigid [place]ib[place]ian dilator was passed carefully along the posterior oropharynx to 45 cm and left in place for 2-3 minutes stretch. The dilator was withdrawn including the guidewire. The scope was reentered along the posterior oropharynx with no findings of full- thickness tear of the upper esophageal sphincter. Additional findings below. Within the stomach, gastritis was identified along the body of the stomach with cold forceps biopsies obtained. The large esophageal valve was evaluated with Hill grade 2 lower esophageal valve. LA grade B erosive esophagitis was identified. No full-thickness injury was encountered. The GI tract was desufflated. The patient tolerated the procedure well. FINDINGS: Upper esophageal stenosis dilated 54-Afghan rigid dilator Diaphragmatic hiatus at 37 cm from the incisors Squamocolumnar junction 38 cm from the incisors. Gastritis along the gastric body and fundus cold forceps biopsies obtained Duodenum without duodenitis LA grade B erosive esophagitis Hill grade 2 lower esophageal valve. RECOMMENDATIONS: Upper endoscopy as needed Plan - Discharge Summary New Discharge Prescriptions: Continue Spironolactone 100 mg PO DAILY Gabapentin [Neurontin] 100 mg PO HS Levothyroxine Sodium [Synthroid] 50 mcg PO DAILY Cyclobenzaprine [Flexeril] 5 mg PO TID PRN PRN Reason: Pain buPROPion [Wellbutrin] 100 mg PO QAM Budesonide/Glycopyr/Formoterol [Breztri Aerosphere Inhaler] 1 - 2 puff INHALATION DIRECTED PRN PRN Reason: sob. Discharge Medication List Spironolactone 100 mg PO DAILY 06/05/18 [History] Budesonide/Glycopyr/Formoterol [Breztri Aerosphere Inhaler] 1 - 2 puff INHALATION DIRECTED PRN 03/26/21 [History] Cyclobenzaprine [Flexeril] 5 mg PO TID PRN 03/26/21 [History] Gabapentin [Neurontin] 100 mg PO HS 03/26/21 [History] Levothyroxine Sodium [Synthroid] 50 mcg PO DAILY 03/26/21 [History] buPROPion [Wellbutrin] 100 mg PO QAM 03/26/21 [History] Follow up Appointment(s)/Referral(s): Stella Cazares MD [STAFF PHYSICIAN] - 04/10/21 Patient Instructions/Handouts: Esophageal Dilation (GEN) Activity/Diet/Wound Care/Special Instructions: Saltwater gargles twice daily. Liquid diet today. Soft diet tomorrow. Discharge Disposition: HOME SELF-CARE
[2021-03-28 08:58] VITALS: RESP 16
[2021-03-28 09:00] VITALS: BP 148/90; PULSE 68
== END 2021-03-28 09:30 | disposition home or self-care (01) ==
LOC: ORWHC2ENDO 06:59
PROVIDERS: ATTEND Surgery Plastic and Reconstructive Surgery
DX: K22.2 Esophageal obstruction (principal); K21.00 Gastro-esophageal reflux disease with esophagitis, without bleeding; K21.9 Gastro-esophageal reflux disease without esophagitis; Z87.891 Personal history of nicotine dependence; J45.909 Unspecified asthma, uncomplicated; I10 Essential (primary) hypertension; E78.5 Hyperlipidemia, unspecified; K44.9 Diaphragmatic hernia without obstruction or gangrene; Z80.9 Family history of malignant neoplasm, unspecified
CPT/HCPCS: 43239; 43249; J2704; 88305

== ENCOUNTER → 2021-06-13 | Outpatient (CLI) | payer OTHER | END | disposition home or self-care (01) | LOC: LABPAT 11:55 | PROVIDERS: ATTEND Surgery Plastic and Reconstructive Surgery | DX: Z53.9 Procedure and treatment not carried out, unspecified reason (principal) ==

== ENCOUNTER → 2021-06-13 | Outpatient (CLI) | payer OTHER ==
[2021-06-13 13:24] LABS: INR 0.9 (<1.2); Partial Thromboplastin Time 23.6 sec (22.0-30.0); Prothrombin Time 10.4 sec (9.0-12.0)
[2021-06-13 19:48] LABS: HCT 42.6 % (37.2-46.3); HGB 13.9 g/dL (12.0-15.0); MCH 27.4 pg (27.0-32.0); MCHC 32.6 g/dL (32.0-37.0); Mean Platelet Volume 11.6 fL (9.5-12.2); NRBC Per 100 WBC 0 /100 WBCS (0.0-0.0); Platelet Count 276 X 10*3/uL (140-440); RBC 5.07 X 10*6/uL (4.10-5.20); RDW 13.5 % (11.5-14.5); WBC 6.31 X 10*3/uL (4.50-10.00)
[2021-06-13 19:54] LABS: Chol/HDL Ratio 4.57 Ratio; LDL Cholesterol,Calculated 56.6 mg/dL (0.0-131.0)
[2021-06-13 22:01] LABS: % Iron Saturation 14.61 (12.00-45.00); ALT 34 U/L (8-44); AST 25 U/L (13-35); African American GFR (CKD) 116.1 (60.0-200.0); Albumin 4.4 g/dL (3.8-4.9); Albumin/Globulin Ratio 1.68 (1.60-3.17); Alkaline Phosphatase 102 U/L (41-126); BUN/Creat Ratio 15.82 Ratio (12.00-20.00); Blood Urea Nitrogen 10.9 mg/dL (9.0-27.0); Calcium 9.8 mg/dL (8.7-10.3); Carbon Dioxide 22.6 mmol/L (20.0-27.5); Chloride 102 mmol/L (96-109); Globulin 2.6 g/dL (1.6-3.3); Glucose 111 mg/dL (70-110); Iron 54 ug/dL (50-170); Magnesium 2.1 mg/dL (1.5-2.4); Non-African American GFR(CKD) 100.1 (60.0-200.0); Phosphorus 4.4 mg/dL (2.4-5.1); Potassium 3.8 mmol/L (3.5-5.5); Sodium 139 mmol/L (135-145); Total Iron Binding Capacity 372 ug/dL (228-460); Total Protein 6.9 g/dL (6.2-8.2)
[2021-06-14 14:30] LABS: Zinc, Serum 85 ug/dL (60-130)
[2021-06-15 06:14] LABS: Vitamin A 58 ug/dL (38-106)
[2021-06-15 07:45] LABS: Vit B1(Thiamine) 46 ug/L (38-122)
== END | disposition home or self-care (01) ==
LOC: LABWHC1 12:27
PROVIDERS: ATTEND Surgery Plastic and Reconstructive Surgery
DX: E66.01 Morbid (severe) obesity due to excess calories (principal); E21.1 Secondary hyperparathyroidism, not elsewhere classified; D50.8 Other iron deficiency anemias; K90.89 Other intestinal malabsorption; K74.1 Hepatic sclerosis; N19 Unspecified kidney failure; K50.90 Crohn's disease, unspecified, without complications; E55.9 Vitamin D deficiency, unspecified
CPT/HCPCS: 36415; 80053; 80061; 82306; 82525; 82607; 82728; 82746; 83036; 83540; 83550; 83735; 83970; 84100; 84134; 84255; 84425; 84443; 84590; 84630; 85027; 85610; 85730

== ENCOUNTER 2021-06-15 09:34 | Observation (INO) | payer OTHER ==
--- NOTE | 2021-06-15 06:54 | P.GSHP ---
History of Present Illness H&P Date: 06/15/21 CHIEF COMPLAINT: Paraesophageal hiatal hernia with gastroesophageal reflux disease. HISTORY OF PRESENT ILLNESS: The patient is a 50-year-old female who presents with paraesophageal hiatal hernia. She has completed an upper endoscopy workup. Now she presents for surgical intervention. PAST MEDICAL HISTORY: Please see list. PAST SURGICAL HISTORY: Please see list. MEDICATIONS: Please see list. ALLERGIES: Please see list. SOCIAL HISTORY: No illicit drug use FAMILY HISTORY: No reports of Crohn disease or ulcerative colitis. REVIEW OF ORGAN SYSTEMS: CONSTITUTIONAL: No reports of fevers or chills. GI: Denies any blood in stools or constipation. PHYSICAL EXAM: VITAL SIGNS: Stable GENERAL: Well-developed pleasant and in no acute distress. HEENT: No scleral icterus. Extraocular movements grossly intact. Moist buccal mucosa. NECK: Supple without lymphadenopathy. CHEST: Unlabored respirations. Equal bilateral excursions. CARDIOVASCULAR: Regular rate and rhythm. Distal 2+ pulses. ABDOMEN: Soft, nondistended. No peritoneal signs. MUSCULOSKELETAL: No clubbing, cyanosis, or edema. SKIN: Well-perfused. Good skin turgor. ASSESSMENT: 1. Diaphragmatic paraesophageal hiatal hernia with severe gastroesophageal reflux disease. PLAN: 1. Recommend proceeding with a robotic paraesophageal hiatal hernia with possible mesh. 2. Benefits and risks of surgical intervention was discussed including possibility of open technique. 3. Inpatient hospitalization recommended of 2 nights 4. DVT prophylaxis. 5. Antibiotic prophylaxis. 6. She has also completed a very low caloric high-protein diet to address underlying hepatomegaly. 7. She is elevared risk with prior adjustable gastric band removal Past Medical History Past Medical History: Asthma, GERD/Reflux Additional Past Medical History / Comment(s): Interstitial Cystitis, Diverticulitis, HIATAL HERNIA History of Any Multi-Drug Resistant Organisms: None Reported Past Surgical History: Bariatric Surgery, Hysterectomy Additional Past Surgical History / Comment(s): Hiatal hernia, Lapband 2010, EGD/colonoscopy 02/15/14 Past Anesthesia/Blood Transfusion Reactions: Previous Problems w/ Anesthesia Additional Past Anesthesia/Blood Transfusion Reaction / Comment(s): Trouble breathing after intubation removed with diff breathing and swallowing Smoking Status: Former smoker - Past Family History Father Family Medical History: Deep Vein Thrombosis (DVT) Medications and Allergies Home Medications Medication Instructions Recorded Confirmed Type Spironolactone 100 mg PO DAILY 06/05/18 06/12/21 History Budesonide/Glycopyr/Formoterol 1 - 2 puff INHALATION DIRECTED 03/26/21 06/12/21 History [Breztri Aerosphere Inhaler] PRN Cyclobenzaprine [Flexeril] 5 mg PO TID PRN 03/26/21 06/12/21 History Gabapentin [Neurontin] 100 mg PO HS 03/26/21 06/12/21 History Levothyroxine Sodium [Synthroid] 50 mcg PO DAILY 03/26/21 06/12/21 History Allergies Allergy/AdvReac Type Severity Reaction Status Date / Time gluten Allergy Abdominal Verified 06/12/21 14:31 Pain wheat Allergy Abdominal Verified 06/12/21 14:31 Pain
[~2021-06-15 09:34] MED LIST changes: +CHLORHEXIDINE GLUCONATE 15 ML CUP MUCOUS MEM PRN; +DEXAMETHASONE SOD PHOSPHATE 4 MG/ML 1 ML VIAL IV ONE; +HEPARIN SODIUM,PORCINE/PF 5,000 UNIT/0.5 ML SYRINGE SQ PRN; -LACTATED RINGERS 1,000 ML IV SCH; -LIDOCAINE 1% (10MG/ML) FOR IV START INTRADERMA PRN; +MIDAZOLAM 2 MG/2 ML VIAL IV PRN; +ONDANSETRON 4 MG/2 ML VIAL IVP ONE; +PANTOPRAZOLE 40 MG/10 ML VIAL IVP PRN; +SCOPOLAMINE 1 MG/72 HR PATCH TRANSDERM ONE; +SCOPOLAMINE 1 MG/72 HR PATCH TRANSDERM STA
[2021-06-15] MEDS: LACTATED RINGERS 1,000 ML IV SCH (10:11)
[2021-06-15] MEDS ORDERED: CHLORHEXIDINE GLUCONATE 15 ML CUP MUCOUS MEM ONE (10:19)
[2021-06-15] MEDS ORDERED: LIDOCAINE 2% INJ 20 MG/ML (2 ML VIAL) ONE (10:42)
[2021-06-15] MEDS ORDERED: fentaNYL (PF) 50 MCG/ML 2 ML AMP ONE (10:42)
[2021-06-15] MEDS ORDERED: SUCCINYLCHOLINE CHLORIDE 100 MG/5 ML SYR IV ONE (10:42)
[2021-06-15] MEDS ORDERED: MIDAZOLAM 2 MG/2 ML VIAL ONE (10:42)
[2021-06-15] MEDS ORDERED: NEOSTIGMINE 1 MG/ML 10 ML VIAL ONE (10:42)
[2021-06-15] MEDS ORDERED: ROCURONIUM 10 MG/ML (5 ML VIAL) IV ONE (10:42)
[2021-06-15] MEDS ORDERED: PROPOFOL 10 MG/ML 20 ML VIAL IV ONE (10:42)
[2021-06-15] MEDS ORDERED: GLYCOPYRROLATE 0.2 MG/ML 2 ML VIAL ONE (10:42)
[2021-06-15] MEDS ORDERED: HYDROmorphone (PF) 1 MG/ML ONE (10:42)
[2021-06-15 10:43] LABS: Glucose,Whole Blood 95 mg/dL (75-99)
[2021-06-15 10:47] LABS: Basophils % (A) 1 %; Eosinophils # (A) 0.1 k/uL (0-0.7); Eosinophils % (A) 2 %; HCT 43.2 % (34.0-46.0); HGB 14.1 gm/dL (11.4-16.0); Lymphocytes # (A) 1.5 k/uL (1.0-4.8); Lymphocytes % (A) 28 %; MCH 27.7 pg (25.0-35.0); MCHC 32.7 g/dL (31.0-37.0); MCV 84.7 fL (80.0-100.0); Mean Platelet Volume 7.8; Monocytes # (A) 0.3 k/uL (0-1.0); Monocytes % (A) 6 %; Neutrophils # (A) 3.3 k/uL (1.3-7.7); Neutrophils % (A) 61 %; Platelet Count 250 k/uL (150-450); WBC 5.4 k/uL (3.8-10.6)
[2021-06-15] MEDS ORDERED: BUPIVACAIN-EPI 0.25%-1:200,000 30 ML VIAL SQ ONE (11:12)
[2021-06-15 11:15] LABS: ALT 29 U/L (4-34); AST 30 U/L (14-36); African American GFR (CKD) >90 (>60 ml/min/1.73 sqM); Albumin 4.2 g/dL (3.5-5.0); Alkaline Phosphatase 88 U/L (38-126); Anion Gap 8 mmol/L; Blood Urea Nitrogen 10 mg/dL (7-17); Calcium 9.3 mg/dL (8.4-10.2); Carbon Dioxide 24 mmol/L (22-30); Chloride 108 mmol/L (98-107); Glucose 96 mg/dL (74-99); Non-African American GFR(CKD) >90 (>60 ml/min/1.73 sqM); Potassium 4.7 mmol/L (3.5-5.1); Sodium 140 mmol/L (137-145); Total Bilirubin 0.7 mg/dL (0.2-1.3); Total Protein 6.9 g/dL (6.3-8.2)
[2021-06-15] MEDS ORDERED: LACTATED RINGERS 1,000 ML IV ONE (12:24)
--- NOTE | 2021-06-15 13:10 | P.OP ---
Date of Procedure: 06/15/21 Description of Procedure: SURGEON: CARLOS A RAMIREZ MD PREOPERATIVE DIAGNOSES: 1. Symptomatic paraesophageal diaphragmatic hiatal hernia. 2. Gastroesophageal reflux disease. 3. Epigastric abdominal pain 4. Upper esophageal globus 5. Esophageal dysmotility 6. Generalized anxiety disorder 7. Neuropathy 8. Hypertensive heart disease 9. Hypothyroidism 10. Asthma 11. Morbid obesity due to excess calories, BMI 35.9 12. History of adjustable gastric band POSTOPERATIVE DIAGNOSES: 1. Paraesophageal midline diaphragmatic hernia, 3 cm, with incarceration. 2. Gastroesophageal reflux disease. 3. Epigastric abdominal pain 4. Upper esophageal globus 5. Esophageal dysmotility 6. Generalized anxiety disorder 7. Neuropathy 8. Hypertensive heart disease 9. Hypothyroidism 10. Asthma 11. Morbid obesity due to excess calories, BMI 35.9 12. History of adjustable gastric band 13. Peritoneal adhesions OPERATION: 1. Robotic-assisted da Selena Xi laparoscopic repair of incarcerated paraesophageal hiatal hernia, 3 x 3 cm, with [place] Biopatch A 8 x 8 cm. 2. Robotic-assisted da Selena Xi laparoscopic lysis of adhesions over 30 minutes 3. Intraoperative esophagogastroduodenoscopy 4. Placement of 56-Kiswahili bougie for esophageal dysmotility ANESTHESIA: General with local anesthetic. ESTIMATED BLOOD LOSS: 5 mL SPECIMENS REMOVED: None COMPLICATIONS: None. Condition: stable Disposition: floor FINDINGS: 1. Midline incarcerated paraesophageal hiatal hernia 3 x 3 cm 2. Intraoperative upper endoscopy confirms complete closure of hiatal hernia from Hill grade 3 to Hill grade 1 3. Intraesophageal length over 2 cm 4. Severe lucila-gastric and lucila-hepatic adhesions from prior adjustable gastric band 5. Severe pelvic adhesions INDICATIONS: The patient is a 50-year-old female who presents with gastroesophageal reflux disease poorly controlled despite medications, and a symptomatic diaphragmatic hiatal hernia. Preoperative workup including upper endoscopy demonstrated incarcerate hiatal hernia. Given the severity of symptoms, the patient had elected for surgical intervention. Benefits and risks including bleeding, infection, recurrence, dysphagia, injury to the lung, need for further surgery was described at length. Informed consent was obtained. DESCRIPTION: The patient was brought into the operating room and placed in supine position. Preoperatively the patient had received heparin subcutaneously for DVT prophylaxis. After general induction, the abdomen was prepped and draped in standard sterile fashion. The patient had previously voided prior to coming to the operating room. [place]an draping was placed along the abdomen. A timeout protocol was confirmed with the surgical team, for which the patient's name, procedure to be performed including DVT prophylaxis with bilateral SCDs, and preoperative antibiotics were also confirmed. A robotic da Selena Xi system was prepped and primed. At 12 cm from the xiphoid to just below the umbilicus, proposed port sites were marked with indelible marker along the left axillary line, left mid-clavicular line with each ports were marked 10 cm from each other. A 5 mm 0 degrees laparoscopic trocar entry was performed along the left upper quadrant. The abdomen was insufflated to 15 mmHg pressure was tolerated well. Diagnostic laparoscopy demonstrated no injury to bowel, viscera, or mesentery. No injury had occurred to the small bowel or viscera. The liver was smooth consistent with two-week high-protein low-carb diet. Previous trochar sites from cholecystectomy were used. Next, one 8 mm robotic port was placed along the right upper abdomen. An 8-mm port was were placed along the right lateral lateral abdominal wall. The camera 8-mm port was maintained along the epigastrium. Another 12 mm port was placed along the left upper abdominal wall after exchanging the 5 mm port. Please note that the ports were placed at least 20 cm away from the target anatomy. Care was taken to check that each robotic arm were safely away from collision with the bed or the patient. At the epigastrium, a medium sized [place] liver retractor was placed under direct visualization with the Iron Ring Sorter placed under the right shoulder of the patient. All robotic arms were used. The patient was repositioned in reverse Trendelenburg position at 21-degrees after lowering the bed. The robot was docked above the right side of the patient. Using a grasper for arm 3, a grasper for arm 1, including vessel sealer for arm 2, the robotic system was docked and primed as described. Instruments were interchanged by the news assistant. I had sat at the console. Moderate lucila-gastric and lucila-hepatic adhesions were found along the left lobe of the liver. Lysis of adhesions over 30 minutes was performed to free the stomach and cardia from the liver. Severe pelvic adhesions were found. Lysis was performed using vessel sealer and scissors with cautery. The gastrohepatic ligament was scarred from prior adjustable gastric band surgery. The ligament was cleaved using a vessel sealer. Next, the phrenoesophageal ligament was mobilized and the distal esophagus was mobilized circumferentially. The left and right crura was identified. Circumferentially, the hernia sac was excised and brought into the peritoneal cavity. Moderate dissection into the mediastinum was performed to release the esophagus into the abdominal cavity. The paraesophageal hiatal hernia sac was also incised and divided from the esophagus. Care was taken to avoid any gastrotomy. The measured defect was consistent with 3 cm axial length and 3 cm in width. After dissection, the distal esophagus of 2+ cm was brought into the abdominal cavity. Once the hiatus and crura was dissected, 2-0 VLOC nonabsorbable suture was placed to reapproximate the diaphragmatic hiatus posteriorly. To buttress the repair, a [place] Biopatch A was prepared along the back table and cut in half of a blanca-hole fashion as to reinforce the repair as an underlay. The mesh was placed along the crural repair and tagged using horizontal mattress sutures using 2-0 VLOC. I went to the head of the bed to perform intraoperative esophagogastroduodenoscopy and placement of a 56Fr bougie. The bougie was passed along the posterior oropharynx into the stomach to address pre-existing esophageal dysmotility for 2 minutes then removed. An Olympus gastroscope was passed through posterior oropharynx. Retroflexion of the scope confirmed a Hill grade 1 lower esophageal valve. A gastric cardia diverticulum was identified. The stomach had been desufflated. No evidence of leaks were found of the esophagus or stomach. The GI tract with desufflated This concluded the endoscopic portion of the case. The robot was undocked from the patient. I re-scrubbed into the case. All instruments and pneumoperitoneum and specimens were evacuated from the abdominal cavity. Incisions were reapproximated using 4-0 Monocryl in an interrupted subcuticular fashion. Liquid glue was applied to the skin. Local anesthetic was infiltrated in all wounds for postop analgesia. At the end of the procedure, needle, sponge, and instrument count was verified correct by the surgical dental assistant. The patient had tolerated the procedure well and was taken to the postanesthesia unit in stable condition.
[2021-06-15] MEDS: HYDROmorphone 0.5 MG/0.5 ML SYRINGE IVP PRN ×3 (13:36→14:04)
[2021-06-15] MEDS ORDERED: CYCLOBENZAPRINE 5 MG TAB PO PRN (13:38)
[2021-06-15] MEDS: SIMETHICONE 40 MG/0.6 ML DROPS 2,000 MG/30 ML BOTTLE PO SCH ×3 (13:52→21:49)
[2021-06-15] MEDS ORDERED: diphenhydrAMINE 50 MG/ML 1 ML VIAL IVP ONE (14:04)
[2021-06-15] MEDS ORDERED: LABETALOL SYRINGE 5 MG/ML IVP ONE (14:26)
--- NOTE | 2021-06-15 17:14 | FL ---
EXAMINATION TYPE: FL esophagus cervic/pharynx DATE OF EXAM: 06/15/2021 COMPARISON: NONE HISTORY: Status post Ladan fundoplasty. FINDINGS: Patient was given 40 cc Isovue 300 orally and attention directed to the gastroesophageal ju nction. No extravasation or obstruction to flow. Postop changes noted at the gastroesophageal junct ion compatible with patient's history. Basilar atelectatic change is present. 18 seconds fluoroscopy time, 4 intraoperative C-arm images document the procedure IMPRESSION: No evident complication status post fundoplasty.
[2021-06-15] MEDS: DEXAMETHASONE SOD PHOSPHATE 4 MG/ML 1 ML VIAL IVP SCH ×2 (18:16→23:34)
[2021-06-15] MEDS: METOCLOPRAMIDE 5 MG/ML 2 ML VIAL IVP SCH ×2 (18:16→23:35)
[2021-06-15] MEDS: ONDANSETRON 4 MG/2 ML VIAL IVP SCH ×2 (18:16→23:35)
[2021-06-15] MEDS: ACETAMINOPHEN IV (For NPO) 1,000 MG in EMPTY BAG 1 BAG IVPB SCH ×2 (18:20→23:35)
[2021-06-15] MEDS ORDERED: GABAPENTIN 100 MG CAP PO SCH (21:00)
[2021-06-16] MEDS: LACTATED RINGERS 1,000 ML IV SCH (00:45)
[2021-06-16] MEDS: HYDROmorphone 1 MG/ML 1 ML SYRINGE IVP PRN ×2 (01:25→08:37)
[2021-06-16 03:14] VITALS: RESP 16
[2021-06-16] MEDS: DEXAMETHASONE SOD PHOSPHATE 4 MG/ML 1 ML VIAL IVP SCH ×2 (05:23→12:25)
[2021-06-16] MEDS: ONDANSETRON 4 MG/2 ML VIAL IVP SCH ×2 (05:23→12:25)
[2021-06-16] MEDS: METOCLOPRAMIDE 5 MG/ML 2 ML VIAL IVP SCH ×2 (05:23→12:25)
[2021-06-16] MEDS: ACETAMINOPHEN IV (For NPO) 1,000 MG in EMPTY BAG 1 BAG IVPB SCH ×2 (05:23→12:25)
[2021-06-16] MEDS ORDERED: LEVOTHYROXINE 50 MCG TAB PO SCH (06:30)
[2021-06-16 08:15] VITALS: BP 123/74; PULSE 98; TEMP 97.5
[2021-06-16] MEDS: SIMETHICONE 40 MG/0.6 ML DROPS 2,000 MG/30 ML BOTTLE PO SCH ×2 (08:37→12:25)
[2021-06-16] MEDS ORDERED: SPIRONOLACTONE 25 MG TAB PO SCH (09:00)
--- NOTE | 2021-06-16 12:19 | P.DS ---
Providers Date of admission: 06/16/21 08:42 Expected date of discharge: 06/16/21 Attending physician: Stella Cazares Primary care physician: Roxanne Hoover - Discharge Diagnosis(es) (1) Paraesophageal hiatal hernia Status: Acute (2) Gastroesophageal reflux disease Status: Acute (3) Esophageal dysmotility Status: Acute Hospital Course: POSTOPERATIVE DIAGNOSES: 1. Paraesophageal midline diaphragmatic hernia, 3 cm, with incarceration. 2. Gastroesophageal reflux disease. 3. Epigastric abdominal pain 4. Upper esophageal globus 5. Esophageal dysmotility 6. Generalized anxiety disorder 7. Neuropathy 8. Hypertensive heart disease 9. Hypothyroidism 10. Asthma 11. Morbid obesity due to excess calories, BMI 35.9 12. History of adjustable gastric band 13. Peritoneal adhesions COURSE: The patient is a 50-year-old female who presents with gastroesophageal reflux disease poorly controlled despite medications, and a symptomatic diaphragmatic hiatal hernia. Preoperative workup including upper endoscopy demonstrated incarcerate hiatal hernia. Given the severity of symptoms, the pat ient had elected for surgical intervention. Postoperatively, she was tolerating diet. Her initial epigastric pain had resolved following surgery. Discharge instruction reviewed. Gas pressure from [facility] was reviewed. Diet reviewed. Her mother is at bedside. Medical reconciliation performed. Vital Signs Temp 97.5 F L 06/16/21 08:00 Pulse 98 06/16/21 08:00 Resp 16 06/16/21 08:00 BP 123/74 06/16/21 08:00 Pulse Ox 95 06/16/21 08:00 Intake & Output 06/15/21 06/16/21 06/16/21 18:59 06:59 18:59 Intake Total 2250 Output Total 5 Balance 2245 Weight 92 kg 92 kg Intake: IV 1950 Oral 300 Output: Estimated Blood Loss 5 Other: # Voids 2 2 Laboratory Last Values WBC 5.4 k/uL (3.8-10.6) 06/15/21 10:30 RBC 5.10 m/uL (3.80-5.40) 06/15/21 10:30 Hgb 14.1 gm/dL (11.4-16.0) 06/15/21 10:30 Hct 43.2 % (34.0-46.0) 06/15/21 10:30 MCV 84.7 fL (80.0-100.0) 06/15/21 10:30 MCH 27.7 pg (25.0-35.0) 06/15/21 10:30 MCHC 32.7 g/dL (31.0-37.0) 06/15/21 10:30 RDW 14.0 % (11.5-15.5) 06/15/21 10:30 Plt Count 250 k/uL (150-450) 06/15/21 10:30 MPV 7.8 06/15/21 10:30 Neutrophils % 61 % 06/15/21 10:30 Lymphocytes % 28 % 06/15/21 10:30 Monocytes % 6 % 06/15/21 10:30 Eosinophils % 2 % 06/15/21 10:30 Basophils % 1 % 06/15/21 10:30 Neutrophils # 3.3 k/uL (1.3-7.7) 06/15/21 10:30 Lymphocytes # 1.5 k/uL (1.0-4.8) 06/15/21 10:30 Monocytes # 0.3 k/uL (0-1.0) 06/15/21 10:30 Eosinophils # 0.1 k/uL (0-0.7) 06/15/21 10:30 Basophils # 0.0 k/uL (0-0.2) 06/15/21 10:30 Sodium 140 mmol/L (137-145) 06/15/21 10:30 Potassium 4.7 mmol/L (3.5-5.1) 06/15/21 10:30 Chloride 108 mmol/L (98-107) H 06/15/21 10:30 Carbon Dioxide 24 mmol/L (22-30) 06/15/21 10:30 Anion Gap 8 mmol/L 06/15/21 10:30 BUN 10 mg/dL (7-17) 06/15/21 10:30 Creatinine 0.52 mg/dL (0.52-1.04) 06/15/21 10:30 Est GFR (CKD-EPI)AfAm >90 (>60 ml/min/1.73 sqM) 06/15/21 10:30 Est GFR (CKD-EPI)NonAf >90 (>60 ml/min/1.73 sqM) 06/15/21 10:30 Glucose 96 mg/dL (74-99) 06/15/21 10:30 POC Glucose (mg/dL) 95 mg/dL (75-99) 06/15/21 10:27 POC Glu Machine Buffer ID Nancy Paez 06/15/21 10:27 Calcium 9.3 mg/dL (8.4-10.2) 06/15/21 10:30 Total Bilirubin 0.7 mg/dL (0.2-1.3) 06/15/21 10:30 AST 30 U/L (14-36) 06/15/21 10:30 ALT 29 U/L (4-34) 06/15/21 10:30 Alkaline Phosphatase 88 U/L (38-126) 06/15/21 10:30 Total Protein 6.9 g/dL (6.3-8.2) 06/15/21 10:30 Albumin 4.2 g/dL (3.5-5.0) 06/15/21 10:30 Pertinent Studies: Esophagram reviewed negative for leak or obstruction Procedures: OPERATION: 1. Robotic-assisted da Selena Xi laparoscopic repair of incarcerated paraesophageal hiatal hernia, 3 x 3 cm, with [place] Biopatch A 8 x 8 cm. 2. Robotic-assisted da Selena Xi laparoscopic lysis of adhesions over 30 minutes 3. Intraoperative esophagogastroduodenoscopy 4. Placement of 56-Welsh bougie for esophageal dysmotility ANESTHESIA: General with local anesthetic. ESTIMATED BLOOD LOSS: 5 mL SPECIMENS REMOVED: None COMPLICATIONS: None. Condition: stable Disposition: floor FINDINGS: 1. Midline incarcerated paraesophageal hiatal hernia 3 x 3 cm 2. Intraoperative upper endoscopy confirms complete closure of hiatal hernia from Hill grade 3 to Hill grade 1 3. Intraesophageal length over 2 cm 4. Severe lucila-gastric and lucila-hepatic adhesions from prior adjustable gastric band 5. Severe pelvic adhesions Patient Condition at Discharge: Good Plan - Discharge Summary Discharge Rx Participant: Yes New Discharge Prescriptions: New bisacodyL [Dulcolax] 5 mg PO DAILY PRN #10 tab PRN Reason: Constipation Simethicone 40 mg/0.6 ml Drops [Mylicon Drops] 40 mg PO PCHS PRN #30 ml PRN Reason: Gas Omeprazole [PriLOSEC] 40 mg PO DAILY #30 cap Acetaminophen Tab [Tylenol Tab] 1,000 mg PO Q6HR PRN #30 tablet PRN Reason: Pain Ondansetron Odt [Zofran Odt] 4 mg PO Q8HR PRN #9 tab PRN Reason: Nausea Continue Spironolactone 100 mg PO DAILY Gabapentin [Neurontin] 100 mg PO HS Levothyroxine Sodium [Synthroid] 50 mcg PO DAILY Cyclobenzaprine [Flexeril] 5 mg PO TID PRN PRN Reason: Pain Budesonide/Glycopyr/Formoterol [Breztri Aerosphere Inhaler] 1 - 2 puff INHALATION DIRECTED PRN PRN Reason: sob. LORazepam 0.5 PO DAILY PRN PRN Reason: Anxiety Discharge Medication List Spironolactone 100 mg PO DAILY 06/05/18 [History] Budesonide/Glycopyr/Formoterol [Breztri Aerosphere Inhaler] 1 - 2 puff INHALA TION DIRECTED PRN 03/26/21 [History] Cyclobenzaprine [Flexeril] 5 mg PO TID PRN 03/26/21 [History] Gabapentin [Neurontin] 100 mg PO HS 03/26/21 [History] Levothyroxine Sodium [Synthroid] 50 mcg PO DAILY 03/26/21 [History] LORazepam 0.5 PO DAILY PRN 06/15/21 [History] Acetaminophen Tab [Tylenol Tab] 1,000 mg PO Q6HR PRN #30 tablet 06/16/21 [Rx] Omeprazole [PriLOSEC] 40 mg PO DAILY #30 cap 06/16/21 [Rx] Ondansetron Odt [Zofran Odt] 4 mg PO Q8HR PRN #9 tab 06/16/21 [Rx] Simethicone 40 mg/0.6 ml Drops [Mylicon Drops] 40 mg PO PCHS PRN #30 ml 06/16/21 [Rx] bisacodyL [Dulcolax] 5 mg PO DAILY PRN #10 tab 06/16/21 [Rx] Follow up Appointment(s)/Referral(s): Stella Cazares MD [STAFF PHYSICIAN] - 06/19/21 (Telehealth visit, please call office ) Patient Instructions/Handouts: Laparoscopic Hiatal Hernia Repair (DC) Activity/Diet/Wound Care/Special Instructions: Liquid diet only for 2 weeks until June 29 No lifting over 4 pounds in 4 weeks, July 14June shower No soaking in bath tubs for 2 weeks, June 29 Please notify your surgeon if you develop nausea and vomiting including new onset of abdominal pain. Please ambulate at all times. Use Simethicone, Gas-X, Tylenol and ibuprofen or Aleve scheduled for the next 24-48 hours for best pain relief. Use ice along incisions for the today to prevent swelling. Please open, cut, crush pills larger than the size of a tic tack No carbonated beverages. No straws. Do not remove scopolamine patch for 3 days, if present Avoiding Gas Avoid drinking through a straw. Do not chew gum or tobacco. These actions cause you to swallow air, which produces excess gas in your stomach. Chew with your mouth closed. Avoid any foods that cause stomach gas and distention. These foods include corn, dried beans, peas, lentils, onions, broccoli, cauliflower and any food from the cabbage family. Avoid carbonated drinks, alcohol, citrus and tomato products. Carbonated drinks (sodas) are not allowed for the first six to eight weeks after surgery. After this time you can try them again in small amounts Clear Liquid Diet The first diet after surgery is the clear liquid diet. It includes the following liquids: Apple juice Cranberry juice Grape juice Chicken broth Beef broth Flavored gelatin (Jell-O) Decaf tea and coffee Caffeinated beverages are permitted based on tolerance Popcles Portuguese ice Full Liquid Diet The full liquid diet contains anything on the clear liquid diet, plus: Milk, soy, rice and almond (no chocolate) Cream of wheat, cream of rice, grits Strained creamed soups (no tomato or broccoli) Vanilla and strawberry-flavored ice cream Sherbet Blended, custard styled or whipped yogurt (plain or vanilla only) Vanilla and butterscotch pudding (no chocolate or coconut) Nutritional drinks including Ensure, Boost, [place] Instant Breakfast (no chocolate-flavored) Note: Dairy products, such as milk, ice cream and pudding, may cause diarrhea in some people just after surgery. You may need to avoid milk products. If so, substitute them with lactose-free beverages, such as soy, rice, Lactaid or almond milks. Discharge Disposition: HOME SELF-CARE Discharge Disposition: HOME SELF-CARE
[2021-06-16 13:15] VITALS: BMI 35.9
== END 2021-06-16 14:20 | disposition home or self-care (01) ==
LOC: OR 09:34 → 4SSUR 12:45 → OR 13:08 → 4SSUR 06-16 08:42
PROVIDERS: ADMIT Surgery Plastic and Reconstructive Surgery; ATTEND Surgery Plastic and Reconstructive Surgery
DX: K44.0 Diaphragmatic hernia with obstruction, without gangrene (principal); K66.0 Peritoneal adhesions (postprocedural) (postinfection); K21.9 Gastro-esophageal reflux disease without esophagitis; K22.4 Dyskinesia of esophagus; K22.89 Other specified disease of esophagus; F41.1 Generalized anxiety disorder; G62.9 Polyneuropathy, unspecified; I11.9 Hypertensive heart disease without heart failure; E03.9 Hypothyroidism, unspecified; J45.909 Unspecified asthma, uncomplicated; E66.01 Morbid (severe) obesity due to excess calories; Z68.35 Body mass index [BMI] 35.0-35.9, adult; Z98.84 Bariatric surgery status; R16.0 Hepatomegaly, not elsewhere classified; N30.10 Interstitial cystitis (chronic) without hematuria; Z87.19 Personal history of other diseases of the digestive system; Z90.710 Acquired absence of both cervix and uterus; Z87.891 Personal history of nicotine dependence; Z98.890 Other specified postprocedural states; Z82.49 Family history of ischemic heart disease and other diseases of the circulatory system; Z79.899 Other long term (current) drug therapy; Z79.890 Hormone replacement therapy; Z91.02 Food additives allergy status; Z91.018 Allergy to other foods
CPT/HCPCS: 80053; 85025; 74210; 43282; 43235; G0378 ×2; C1781; J2250; J1200; J1100 ×2; J2710; J2765 ×2; J0690 ×2; J2405 ×2; J3010; J1170 ×3; J0131 ×2; J0330; J2704; Q9967; J1644; J2001

== ENCOUNTER → 2021-08-09 | Outpatient (CLI) | payer OTHER ==
--- NOTE | 2021-08-09 20:47 | CONS ---
CONSULTATION DATE OF SERVICE: 08/09/2021 50-year-old lady has been evaluated [facility] for difficulties initiating sleep, snoring, multiple awakenings from sleep, memory problems. HISTORY OF PRESENT ILLNESS SLEEP-WAKE EVALUATION: Patient's usual sleep schedule on weekdays from 10 p.m. to 8 a.m. and on weekends from around 11 p.m. to 9:30/10:00 am. She does have problems with falling asleep, has TV set in bedroom. Usually sleeps on the side position. She snores and wakes up from sleep 3 times with nocturia. No history of hypnagogic hallucinations, sleep paralysis or cataplexy. During the night, patient has restless leg symptoms and also she described that her legs constantly moving during the sleep. In the morning the patient wakes up tired, falling asleep during the day, has problems with memory, concentration and anxiety. Scenic Sleepiness Scale is borderline 9. She does not take any naps. PAST MEDICAL HISTORY: Positive for memory problems, hypothyroidism, hypertension, hyperlipidemia. History of interstitial cystitis. PAST SURGICAL HISTORY: Had hernia surgical treatment, total hysterectomy. MEDICATION: Atorvastatin 40 mg once a day, spironolactone 100 mg once a day, Synthroid 75 mcg once a day. SOCIAL HISTORY: Negative for smoking or using alcohol. FAMILY HISTORY: Hypertension, heart problems, sleep apnea by her father. REVIEW OF SYSTEMS: Multiple awakenings from sleep snoring sleepiness during the day. PHYSICAL EXAMINATION: GENERAL: lady without distress BP 113/78, HR 78, RR 16, height 5 feet 3 inches, weight 196.8, body mass index 34.7, temperature 97.0, Oxygen saturation at room air 97%. Oropharynx: Low position of soft palate, Mallampati 4. NECK 14-1/4 inches in circumference. Neck: Supple, no JVD. Thyroid is not palpable. LUNGS: Clear to percussion and to auscultation. Good air exchange. No wheezing or rhonchi. HEART: S1, S2 regular. No murmurs, gallops, or rubs. ABDOMEN: Obese. Soft and nontender. Bowel sounds are present. No organomegaly appreciated. EXTREMITIES: No clubbing or cyanosis. VETERINARY TECHNICIAN: Awake, alert, and oriented X3. Cranial nerves 2 to 7 intact. There is no fasciculation or atrophy. noted. No focal deficits observed. IMPRESSION: 1. Snoring, multiple awakenings from sleep with nocturia, low position of soft palate, Mallampati 4, borderline Scenic Sleepiness Scale 9. Obstructive sleep apnea- hypopnea syndrome. 2. Difficulties initiating sleep, psychophysiological insomnia. 3. History of restless leg symptoms. 4. Significant amount of leg movements during the night, possibly periodic limb movements. 5. Memory problems. 6. Hypothyroidism. 7. History of hypertension in the past. 8. History of interstitial cystitis. 9. Hyperlipidemia. 10.Status post total hysterectomy. 11.Status post hiatal hernia surgery. PLAN: 1. I discussed with the patient psychological techniques for treatment of insomnia including stimulus control, paradoxical intention, no watching clock during the night, stop watching TV in bedroom. 2. Polysomnography for evaluation of patient's breathing during sleep and also to check for possible periodic limb movements. 3. CPAP/BiPAP titration if sleep study confirms obstructive sleep apnea-hypopnea syndrome. 4. Preferable position during sleep on the side. 5. No driving if patient feels any sleepiness. 6. Losing weight program. 7. I will see patient for follow up visit to explain results of testing and following plan. Thank you very much for referring this patient for consultation. Sincerely, Federico Mix MD, PhD, FAASM Diplomat of [employer] Sleep Medicine Board of [employer] [facility] [place] MMODL / TYRESE: [id number] /
== END ==
LOC: SLEEP 11:32
PROVIDERS: ATTEND Internal Medicine
DX: G47.33 Obstructive sleep apnea (adult) (pediatric) (principal); F51.04 Psychophysiologic insomnia; G25.81 Restless legs syndrome; E03.9 Hypothyroidism, unspecified; I10 Essential (primary) hypertension; E78.5 Hyperlipidemia, unspecified; R41.3 Other amnesia; Z90.710 Acquired absence of both cervix and uterus; Z98.890 Other specified postprocedural states; Z87.448 Personal history of other diseases of urinary system; Z79.890 Hormone replacement therapy; Z79.899 Other long term (current) drug therapy; Z91.018 Allergy to other foods
CPT/HCPCS: 99211

== ENCOUNTER → 2022-08-22 | Outpatient (CLI) | payer BC ==
--- NOTE | 2022-08-23 09:35 | US ---
EXAMINATION TYPE: US thyroid st tissue head/neck DATE OF EXAM: 08/22/2022 COMPARISON: 04/22/2014 CLINICAL INDICATION: Female, 51 years old with history of E03.9 HYPOTHYROIDISM, UNSPECIFIED; pt. feel s walnut in throat in center of neck GLAND SIZE: Right Lobe: 3.0x0.9x1.3 cm Overall Parenchyma: homogenous Left Lobe: 2.9x0.5x1.1 cm Overall Parenchyma: homogeneous Isthmus Thickness: 0.2 cm NODULES RIGHT: # of nodules measured on right: 1 1. 0.5 X 0.4 x 0.4 cm, upper mid, TIRADS Score: 0 TIRADS Category 1: Benign Composition: Cystic or almost completely cystic (0 points). Recommendation: No FNA LEFT: # of nodules measured on left: 1 1. 0.4 X 0.4 x 0.3 cm, upper medial Prior size: 0.5 x 0.3 x 0.3 cm TIRADS Score: 4 TIRADS Category 4: Moderately Suspicious Composition: Solid or almost completely solid (2 points). Echogenicity: Hypoechoic (2 points). Shape: Wider than tall (0 points). Margin: Smooth (0 points). Echogenic foci: None or large comet-tail artifacts (0 points) Recommendation: If >1.5cm: FNA; If >1cm: Follow up at 1,2, 3,5 years ISTHMUS: # of nodules measured in the isthmus: 0 Bilateral neck scanned, no evidence of lymphadenopathy. IMPRESSION: Left thyroid nodule which may be minimally increased in size from 2015. No suspicious nodules.
== END | disposition home or self-care (01) ==
LOC: RADUSWWP 16:54
PROVIDERS: ATTEND Internal Medicine
DX: E04.1 Nontoxic single thyroid nodule (principal); E03.9 Hypothyroidism, unspecified
CPT/HCPCS: 76536

== ENCOUNTER 2024-03-11 08:27 | Emergency (ER) | payer MEDICARE ==
[2024-03-11 08:41] VITALS: TEMP 98.3
[2024-03-11 09:21] LABS: Glucose,Whole Blood 102 mg/dL (70-110)
--- NOTE | 2024-03-11 09:21 | ED ---
General Adult HPI - General Chief complaint: Neuro Symptoms/Deficit Stated complaint: L sided flank pain,Dizziness Time Seen by Provider: 03/11/24 08:49 Source: patient Mode of arrival: ambulatory Limitations: no limitations - History of Present Illness Initial comments: Dictation was produced using [employer]ard[employer] dictation software. please excuse any grammatical, word or spelling errors. Chief Complaint: 53-year-old female presents emergency department with dizziness, blurry vision and left flank pain History of Present Illness: Patient is a 53-year-old female she has past medical history of asthma and GERD. States that she has been feeling left-sided flank pain. She is also had reported malodorous urine. Symptoms have been ongoing for a month associated with vision changes. Patient states that her symptoms been ongoing for a month. She has been seen by builder's labourer along with primary care doctor states that nothing that appears to be abnormal. States that she does have symptoms whenever she eats. She is not sure if it is a blood sugar issue. The ROS documented in this emergency department record has been reviewed and confirmed by me. Those systems with pertinent positive or negative responses have been documented in the HPI. All other systems are other negative and/or noncontributory. - Related Data Home Medications Medication Instructions Recorded Confirmed Spironolactone 100 mg PO DAILY 06/05/18 03/11/24 Albuterol Inhaler [Ventolin Hfa 1 puff INHALATION RT-Q4H PRN 03/11/24 03/11/24 Inhaler] Cyanocobalamin [Vitamin B-12 1,000 mcg SQ Q30D 03/11/24 03/11/24 Injection] Estradiol Cream [Estrace Cream 1 gm VAGINAL DIRECTED 03/11/24 03/11/24 0.01%] Estriol/Estradiol 80-20% 1 clinton SL DAILY 03/11/24 03/11/24 (Progesterone/Testosterone 1.8-80-1mg) Clinton Omeprazole 20 mg PO AC-BRKFST 03/11/24 03/11/24 Pregnenolone 50mg 50 mg PO DAILY 03/11/24 03/11/24 Thyroid,Pork [Launderette Attendant Thyroid] 60 mg PO DAILY 03/11/24 03/11/24 Valsartan 80 mg PO DAILY 03/11/24 03/11/24 Allergies Allergy/AdvReac Type Severity Reaction Status Date / Time gluten Allergy Abdominal Verified 03/11/24 09:48 Pain wheat Allergy Abdominal Verified 03/11/24 09:48 Pain Review of Systems ROS Statement: Those systems with pertinent positive or pertinent negative responses have been documented in the HPI. ROS Other: All systems not noted in ROS Statement are negative. Past Medical History Past Medical History: Asthma, GERD/Reflux Additional Past Medical History / Comment(s): Interstitial Cystitis, Diverticulitis, HIATAL HERNIA History of Any Multi-Drug Resistant Organisms: None Reported Past Surgical History: Bariatric Surgery, Hysterectomy Additional Past Surgical History / Comment(s): Hiatal hernia, Lapband 2009, EGD/colonoscopy 02/15/14, hernia repair 06/15/21 Past Anesthesia/Blood Transfusion Reactions: Previous Problems w/ Anesthesia Additional Past Anesthesia/Blood Transfusion Reaction / Comment(s): Trouble breathing after intubation removed with diff breathing and swallowing Past Psychological History: Anxiety Smoking Status: Former smoker Past Alcohol Use History: None Reported Past Drug Use History: None Reported - Past Family History Mother Family Medical History: Cancer Father Family Medical History: Deep Vein Thrombosis (DVT) General Exam - General Exam Comments Initial Comments: PHYSICAL EXAM: General Impression: Alert and oriented x3, not in acute distress HEENT: Normocephalic atraumatic, extra-ocular movements intact, pupils equal and reactive to light bilaterally, mucous membranes moist. Cardiovascular: Heart regular rate and rhythm Chest: Able to complete full sentences, no retractions, no tachypnea Abdomen: abdomen soft, non-tender, non-distended, no organomegaly Musculoskeletal: Pulses present and equal in all extremities, no peripheral edema Motor: no focal deficits noted Neurological: CN II-XII grossly intact, no focal motor or sensory deficits noted Skin: Intact with no visualized rashes Psych: Normal affect and mood Limitations: no limitations Course Vital Signs 03/11/24 03/11/24 03/11/24 08:35 08:41 10:27 Temperature 98.3 F Pulse Rate 83 85 73 Respiratory 18 18 20 Rate Blood Pressure 171/101 185/99 164/107 O2 Sat by Pulse 96 98 97 Oximetry Medical Decision Making - Medical Decision Making Was pt. sent in by a medical professional or institution (, PA, BARMAN, urgent care, hospital, or intermediate...) When possible be specific @ -No Did you speak to anyone other than the patient for history (EMS, parent, family, police, friend...)? What history was obtained from this source @ -No Did you review nursing and triage notes (agree or disagree)? Why? @ -I reviewed and agree with nursing and triage notes Were old charts reviewed (outside hosp., previous admission, EMS record, old EKG, old radiological studies, urgent care reports/EKG's, intermediate records)? Report findings @ -No old charts were reviewed Differential Diagnosis (chest pain, altered mental status, abdominal pain women, abdominal pain men, vaginal bleeding, musculoskeletal, weakness, fever, dyspnea, syncope, headache, dizziness, GI bleed, back pain, seizure, CVA, palpatations, mental health)? @ -Differential Dizziness: Benign paroxysmal positional Vertigo, Meniere's disease, otitis media, acoustic neuroma, vertebrobasilar insufficiency, cerebellar stroke, encephalitis, hypovolemic, arrhythmia, coronary artery syndrome, anemia, this is not meant to be an all-inclusive list EKG interpreted by me (3pts min.). @ -My EKG interpretation: Ventricular rate 80, sinus rhythm,. 175, QRS 102, QTc 4 5. No DE prolongation, no QTC prolongation, no ST or T-wave changes noted. Overall, this EKG is unremarkable X-rays interpreted by me (1pt min.). @ -None done CT interpreted by me (1pt min.). @ -CT scan the brain shows no acute processes. CT abdomen pelvis shows no acute processes U/S interpreted by me (1pt. min.). @ -None done What testing was considered but not performed or refused? (CT, X-rays, U/S, labs)? Why? @ -None What meds were considered but not given or refused? Why? @ -None Was smoking cessation discussed for >3mins.? @ -No Were there social determinants of health that impacted care today? How? (Homelessness, low income, unemployed, alcoholism, drug addiction, transportation, low edu. Level, literacy, decrease access to med. care, penitentiary, rehab)? @ -No Was there de-escalation of care discussed even if they declined (Discuss DNR or withdrawal of care, Hospice)? DNR status @ -No What co-morbidities impacted this encounter? (DM, HTN, Smoking, COPD, CAD, Cancer, CVA, ARF, Chemo, Hep., AIDS, mental health diagnosis, sleep apnea, morbid obesity)? @ -None Was patient admitted / discharged? Hospital course, mention meds given and route, prescriptions, significant lab abnormalities, going to OR and other pertinent info. @ -53-year-old female with vague collection of complaints including intermittent dizziness, intermittent vertigo, total body pain left flank pain. Patient denies any triggers. Vital signs stable. Physical examination is benign. CT imaging is unremarkable. Labs are unremarkable. Patient notified of there is results dispositions options were discussed she is agreeable with discharge. Patient given referral to ear nose and throat. Did you discuss the management of the patient with other professionals (professionals i.e. , PA, BARMAN, lab, RT, psych nurse, mental health social worker, family practice medical doctor, teacher, precinct commanding officer, case mgr)? Give summary @ -No Was critical care preformed (if so, how long)? @ -No Undiagnosed new problem with uncertain prognosis? @ -No Drug Therapy requiring intensive monitoring for toxicity (Heparin, Nitro, Insulin, Cardizem)? @ -No Were any procedures done? @ -No Diagnosis/symptom? Acute, or Chronic, or Acute on Chronic? Uncomplicated (without systemic symptoms) or Complicated (systemic symptoms)? @ -Dizziness Side effects of treatment? @ -No Exacerbation, Progression, or Severe Exacerbation? @ -No Poses a threat to life or bodily function? How? (Chest pain, [place], [place], pneumonia, PE, COPD, DKA, ARF, appy, cholecystitis, CVA, Diverticulitis, Homicidal, Suicidal, threat to staff... and all critical care pts) @ -No - Lab Data Result diagrams: 03/11/24 09:09 03/11/24 09:09 Lab Results 03/11/24 03/11/24 03/11/24 Range/Units 09:09 09:09 09:09 WBC 8.4 (3.8-10.6) k/uL RBC 5.08 (3.80-5.40) m/uL Hgb 13.9 (11.4-16.0) gm/dL Hct 41.6 (34.0-46.0) % MCV 81.8 (80.0-100.0) fL MCH 27.3 (25.0-35.0) pg MCHC 33.4 (31.0-37.0) g/dL RDW 14.5 (11.5-15.5) % Plt Count 256 (150-450) k/uL MPV 8.1 Neutrophils % 68 % Lymphocytes % 21 % Monocytes % 6 % Eosinophils % 2 % Basophils % 1 % Neutrophils # 5.7 (1.3-7.7) k/uL Lymphocytes # 1.8 (1.0-4.8) k/uL Monocytes # 0.5 (0-1.0) k/uL Eosinophils # 0.2 (0-0.7) k/uL Basophils # 0.0 (0-0.2) k/uL Sodium 139 (137-145) mmol/L Potassium 4.5 (3.5-5.1) mmol/L Chloride 103 (98-107) mmol/L Carbon Dioxide 27 (22-30) mmol/L Anion Gap 9 mmol/L BUN 12 (7-17) mg/dL Creatinine 0.57 (0.52-1.04) mg/dL Est GFR (CKD-EPI)AfAm >90 (>60 ml/min/1.73 sqM) Est GFR (CKD-EPI)NonAf >90 (>60 ml/min/1.73 sqM) Glucose 103 H (74-99) mg/dL POC Glucose (mg/dL) (70-110) mg/dL POC Glu Yarn Polishing Machine Operator ID Calcium 9.8 (8.4-10.2) mg/dL Total Bilirubin 0.7 (0.2-1.3) mg/dL AST 21 (14-36) U/L ALT 22 (4-34) U/L Alkaline Phosphatase 106 (38-126) U/L Total Protein 7.0 (6.3-8.2) g/dL Albumin 4.5 (3.5-5.0) g/dL Lipase 80 (23-300) U/L Urine Color Colorless Urine Appearance Clear (Clear) Urine pH 6.0 (5.0-8.0) Ur Specific Barnhart 1.007 (1.001-1.035) Urine Protein Negative (Negative) Urine Glucose (UA) Negative (Negative) Urine Ketones Negative (Negative) Urine Blood Negative (Negative) Urine Nitrite Negative (Negative) Urine Bilirubin Negative (Negative) Urine Urobilinogen <2.0 (<2.0) mg/dL Ur Leukocyte Esterase Negative (Negative) 03/11/24 Range/Units 09:12 WBC (3.8-10.6) k/uL RBC (3.80-5.40) m/uL Hgb (11.4-16.0) gm/dL Hct (34.0-46.0) % MCV (80.0-100.0) fL MCH (25.0-35.0) pg MCHC (31.0-37.0) g/dL RDW (11.5-15.5) % Plt Count (150-450) k/uL MPV Neutrophils % % Lymphocytes % % Monocytes % % Eosinophils % % Basophils % % Neutrophils # (1.3-7.7) k/uL Lymphocytes # (1.0-4.8) k/uL Monocytes # (0-1.0) k/uL Eosinophils # (0-0.7) k/uL Basophils # (0-0.2) k/uL Sodium (137-145) mmol/L Potassium (3.5-5.1) mmol/L Chloride (98-107) mmol/L Carbon Dioxide (22-30) mmol/L Anion Gap mmol/L BUN (7-17) mg/dL Creatinine (0.52-1.04) mg/dL Est GFR (CKD-EPI)AfAm (>60 ml/min/1.73 sqM) Est GFR (CKD-EPI)NonAf (>60 ml/min/1.73 sqM) Glucose (74-99) mg/dL POC Glucose (mg/dL) 102 (70-110) mg/dL POC Glu Yarn Polishing Machine Operator ID Raoul Shivam Calcium (8.4-10.2) mg/dL Total Bilirubin (0.2-1.3) mg/dL AST (14-36) U/L ALT (4-34) U/L Alkaline Phosphatase (38-126) U/L Total Protein (6.3-8.2) g/dL Albumin (3.5-5.0) g/dL Lipase (23-300) U/L Urine Color Urine Appearance (Clear) Urine pH (5.0-8.0) Ur Specific Barnhart (1.001-1.035) Urine Protein (Negative) Urine Glucose (UA) (Negative) Urine Ketones (Negative) Urine Blood (Negative) Urine Nitrite (Negative) Urine Bilirubin (Negative) Urine Urobilinogen (<2.0) mg/dL Ur Leukocyte Esterase (Negative) Disposition Clinical Impression: Dizziness Disposition: HOME SELF-CARE Condition: Good Instructions (If sedation given, give patient instructions): Dizziness (ED) Is patient prescribed a controlled substance at d/c from ED?: No Referrals: Roxanne Hoover MD [Primary Care Provider] - 1-2 days Mateo Tolbert MD [STAFF PHYSICIAN] - 1-2 days Bayron Bills MD [STAFF PHYSICIAN] - 1-2 days Time of Disposition: 10:41
[2024-03-11 09:24] LABS: Appearance,Urine Clear (Clear); Bilirubin,Urine Negative (Negative); Blood,Urine Negative (Negative); Color,Urine Colorless; Glucose,Urine (UA) Negative (Negative); Ketones,Urine Negative (Negative); Leukocyte Esterase,Urine Negative (Negative); Nitrite,Urine Negative (Negative); Protein,Urine Negative (Negative); Specific Gravity,Urine 1.007 (1.001-1.035); Urobilinogen,Urine <2.0 mg/dL (<2.0)
[2024-03-11 09:26] LABS: Basophils % (A) 1 %; Eosinophils # (A) 0.2 k/uL (0-0.7); Eosinophils % (A) 2 %; HCT 41.6 % (34.0-46.0); HGB 13.9 gm/dL (11.4-16.0); Lymphocytes # (A) 1.8 k/uL (1.0-4.8); Lymphocytes % (A) 21 %; MCH 27.3 pg (25.0-35.0); MCHC 33.4 g/dL (31.0-37.0); MCV 81.8 fL (80.0-100.0); Mean Platelet Volume 8.1; Monocytes # (A) 0.5 k/uL (0-1.0); Monocytes % (A) 6 %; Neutrophils # (A) 5.7 k/uL (1.3-7.7); Neutrophils % (A) 68 %; Platelet Count 256 k/uL (150-450); RBC 5.08 m/uL (3.80-5.40); RDW 14.5 % (11.5-15.5); WBC 8.4 k/uL (3.8-10.6)
[2024-03-11 09:37] LABS: ALT 22 U/L (4-34); AST 21 U/L (14-36); African American GFR (CKD) >90 (>60 ml/min/1.73 sqM); Albumin 4.5 g/dL (3.5-5.0); Alkaline Phosphatase 106 U/L (38-126); Anion Gap 9 mmol/L; Blood Urea Nitrogen 12 mg/dL (7-17); Calcium 9.8 mg/dL (8.4-10.2); Carbon Dioxide 27 mmol/L (22-30); Chloride 103 mmol/L (98-107); Glucose 103 mg/dL (74-99); Lipase 80 U/L (23-300); Non-African American GFR(CKD) >90 (>60 ml/min/1.73 sqM); Potassium 4.5 mmol/L (3.5-5.1); Sodium 139 mmol/L (137-145); Total Bilirubin 0.7 mg/dL (0.2-1.3)
--- NOTE | 2024-03-11 10:00 | CT ---
EXAMINATION TYPE: CT brain wo con DATE OF EXAM: 03/11/2024 9:57 AM COMPARISON: 06/05/2018. CLINICAL INDICATION: Female, 53 years old with history of flank pain, constitutional symptoms, Dizzin ess and blurred vision after eating eggs. TECHNIQUE: Brain: Axial CT images of the brain were obtained with coronal and sagittal reformats created and rev iewed. Contrast used: None. Oral contrast used: None. CT DLP: 1114.4 mGycm, Automated exposure control for dose reduction was used. FINDINGS: Brain: Extra-axial spaces: No abnormal extra-axial fluid collections. Ventricular system: Within normal limits Cerebral parenchyma: No acute intraparenchymal hemorrhage or mass effect. The roach-white junction is well differentiated. Cerebellum: Unremarkable. Mass effect: No evidence of midline shift. Intracranial vasculature: unremarkable Soft tissues: Normal. Calvarium/osseous structures: No depressed skull fracture. Paranasal sinuses and mastoid air cells: Mild scattered paranasal sinus disease. Visualized orbits: Orbital contents are intact. IMPRESSION: No acute intracranial process. [facility], , 03/11/2024 9:58 AM
--- NOTE | 2024-03-11 10:20 | CT ---
EXAMINATION TYPE: CT abdomen pelvis w con DATE OF EXAM: 03/11/2024 HISTORY: reports pain on L side, thick and malodorous urine CT DLP: 1295.9mGycm Automated Exposure Control for Dose Reduction was Utilized. CONTRAST: CT scan of the abdomen and pelvis is performed with IV Contrast, patient injected with 100 mL of Isov ue 300. COMPARISON: Prior CT May 31, 2019 FINDINGS: LUNG BASES: No significant abnormality is appreciated. LIVER/GB: There is 1.2 cm simple appearing thin-walled cyst in the left hepatic lobe axial image 13. No new biliary dilatation. PANCREAS: No significant abnormality is seen. SPLEEN: Mild splenomegaly at 13.1 cm long axis axial image 22. ADRENALS: No significant abnormality is seen. KIDNEYS: Symmetric cortical medullary uptake and excretion without hydronephrosis seen bilaterally. N o areas of nonenhancement. Urinary bladder is unremarkable. BOWEL: Diverticula in the descending colon becoming more prominent in the sigmoid colon without CT ev idence for acute diverticulitis. No abnormal small or large bowel dilatation. UTERUS/ADNEXA: Uterus is surgically absent. LYMPH NODES: No greater than 1cm abdominal or pelvic lymph nodes are appreciated. OSSEOUS STRUCTURES: No significant abnormality is seen. OTHER: Mild calcified plaque of the aorta extends into branch vessels. IMPRESSION: No CT evidence to suggest left-sided acute pyelonephritis. No hydronephrosis seen bilater ally. Distal colonic diverticulosis redemonstrated without convincing CT evidence for acute diverticu litis. No suspicious acute findings clearly seen on today's study. [facility], , 03/11/2024 10:17 AM
[2024-03-11 10:28] VITALS: RESP 20
[2024-03-11 11:01] VITALS: BP 180/88; PULSE 75
== END 2024-03-11 11:01 | disposition home or self-care (01) ==
LOC: EC 08:27
DX: R42 Dizziness and giddiness (principal); Z91.018 Allergy to other foods; Z87.891 Personal history of nicotine dependence
CPT/HCPCS: 36415; 93005; 80053; 83690; 85025; 81003; 70450; 74177; 99284; Q9967

== ENCOUNTER 2024-04-21 06:31 | Day surgery (SDC) | payer MEDICARE ==
[2024-04-20 10:11] VITALS: BMI 32.4
[~2024-04-21 06:31] MED LIST changes: -CHLORHEXIDINE GLUCONATE 15 ML CUP MUCOUS MEM PRN; -DEXAMETHASONE SOD PHOSPHATE 4 MG/ML 1 ML VIAL IV ONE; -HEPARIN SODIUM,PORCINE/PF 5,000 UNIT/0.5 ML SYRINGE SQ PRN; +LIDOCAINE 1% (10MG/ML) FOR IV START INTRADERMA PRN; -MIDAZOLAM 2 MG/2 ML VIAL IV PRN; -ONDANSETRON 4 MG/2 ML VIAL IVP ONE; -PANTOPRAZOLE 40 MG/10 ML VIAL IVP PRN; -SCOPOLAMINE 1 MG/72 HR PATCH TRANSDERM ONE; -SCOPOLAMINE 1 MG/72 HR PATCH TRANSDERM STA
[2024-04-21] MEDS: IV FLUID CONTINUATION 1,000 ML IV ONE ×2 (07:16→11:00)
[2024-04-21 07:24] VITALS: TEMP 96.8
[2024-04-21] MEDS: LACTATED RINGERS 1,000 ML IV SCH (07:29)
[2024-04-21] MEDS ORDERED: PROPOFOL 10 MG/ML 20 ML VIAL IV ONE (07:33)
--- NOTE | 2024-04-21 07:36 | P.GSHP ---
History of Present Illness H&P Date: 04/21/24 CHIEF COMPLAINT: GERD and colon screen HISTORY OF PRESENT ILLNESS: The patient is a 53-year-old female who presents with gastroesophageal reflux disease and need for colon screen. Upper and lower endoscopy were offered for further evaluation and management. PAST MEDICAL HISTORY: Please see list. PAST SURGICAL HISTORY: Please see list. MEDICATIONS: Please see list. ALLERGIES: Please see list. SOCIAL HISTORY: No illicit drug use FAMILY HISTORY: No reports of Crohn disease or ulcerative colitis. REVIEW OF ORGAN SYSTEMS: CONSTITUTIONAL: No reports of fevers or chills. GI: Denies any blood in stools or constipation. PHYSICAL EXAM: VITAL SIGNS: Stable GENERAL: Well-developed pleasant in no acute distress. HEENT: No scleral icterus. Extraocular movements grossly intact. Moist buccal mucosa. NECK: Supple without lymphadenopathy. CHEST: Unlabored respirations. Equal bilateral excursions. CARDIOVASCULAR: Regular rate and rhythm. Distal 2+ pulses. ABDOMEN: Soft, nondistended. MUSCULOSKELETAL: No clubbing, cyanosis, or edema. ASSESSMENT: 1. Gastroesophageal reflux disease 2. Colon screen. PLAN: 1. Recommend proceeding with an upper and lower endoscopy Past Medical History Past Medical History: Asthma, GERD/Reflux, Hypertension Additional Past Medical History / Comment(s): has abscess tooth-current tx amoxicillin,esophageal stricture,Lymes Disease dx 2020,Interstitial Cystitis, Diverticulitis, HIATAL HERNIA,irregular b/p was on valsartan then b/p was going to low,blood sugar runs low at times History of Any Multi-Drug Resistant Organisms: None Reported Past Surgical History: Bariatric Surgery, Hysterectomy Additional Past Surgical History / Comment(s): Hiatal hernia, Lapband 2009 then later removed, EGD w/ dilation/colonoscopy 02/15/14, 2nd hiatal hernia repair 06/15/21 Past Anesthesia/Blood Transfusion Reactions: Previous Problems w/ Anesthesia Additional Past Anesthesia/Blood Transfusion Reaction / Comment(s): Trouble breathing after intubation removed with diff breathing and swallowing pt not sure with what surgery-happen one time states has had lapband surgery after that and tolerated anesthesia fine. no blood transfusion hx Smoking Status: Former smoker - Past Family History Mother Family Medical History: Cancer Additional Family Medical History / Comment(s): kidney CA Father Family Medical History: Deep Vein Thrombosis (DVT) Medications and Allergies Home Medications Medication Instructions Recorded Confirmed Type Spironolactone 100 mg PO DAILY 06/05/18 04/21/24 History Albuterol Inhaler [Ventolin Hfa 1 puff INHALATION RT-Q4H PRN 03/11/24 04/19/24 History Inhaler] Cyanocobalamin [Vitamin B-12 1,000 mcg SQ Q30D 03/11/24 04/21/24 History Injection] Estradiol Cream [Estrace Cream 1 gm VAGINAL DIRECTED 03/11/24 04/21/24 History 0.01%] Estriol/Estradiol 80-20% 1 peggy SL DAILY 03/11/24 04/21/24 History (Progesterone/Testosterone 1.8-80-1mg) Peggy Omeprazole 20 mg PO DAILY 03/11/24 04/21/24 History Thyroid,Pork [Reading Teacher Thyroid] 60 mg PO QAM 03/11/24 04/21/24 History Biotin 10 mg PO DAILY 04/19/24 04/21/24 History Fenugreek Supplement 1 dose PO DAILY 04/19/24 04/21/24 History Iron,Carbonyl/Ascorbic Acid 1 each PO DAILY 04/19/24 04/19/24 History [Vitron-C Tablet] Multivitamin/Iron/Folic Acid 1 tab PO DAILY 04/19/24 04/19/24 History [Centrum Women Tablet] [place]-3/Dha/Epa/Fish Oil [Fish Oil 2 each PO DAILY 04/19/24 04/21/24 History 1,000 mg Softgel] Turmeric Root Extract [Turmeric] 500 mg PO DAILY 04/19/24 04/21/24 History Vitamin D3/Vitamin K2 (Mk4) 1 each PO DAILY 04/19/24 04/21/24 History [Vitamin K2 Plus D3 Tablet] Acetylcysteine [Nac] 500 mg PO DAILY 04/20/24 04/21/24 History Amoxicillin 500 mg PO TID 04/20/24 04/21/24 History Allergies Allergy/AdvReac Type Severity Reaction Status Date / Time gluten Allergy Anaphylaxis Verified 04/21/24 07:15 wheat Allergy Anaphylaxis Verified 04/21/24 07:15 Surgical - Exam Vital Signs Temp Pulse Resp BP Pulse Ox 96.8 F L 74 16 179/86 97 04/21/24 07:23 04/21/24 07:23 04/21/24 07:23 04/21/24 07:23 04/21/24 07:23
--- NOTE | 2024-04-21 07:50 | P.PCN ---
Date of Procedure: 04/21/24 Description of Procedure: PREOPERATIVE DIAGNOSIS: Dysphagia. POSTOPERATIVE DIAGNOSIS: Dysphagia. Hypertensive upper esophageal sphincter. Diaphragmatic hiatal hernia OPERATION: Esophagogastroduodenoscopy rigid Stateless dilator 57 Fr, upper esophageal sphincter. SURGEON: Stella Cazares MD ANESTHESIA: MAC. INDICATIONS: The patient is a 53-year-old female who presents with dysphagia. She reports troubles with swallowing pills along her upper throat. Upper endoscopy was offered for further diagnostic evaluation and treatment. DESCRIPTION: The patient was brought into the endoscopy suite and laid in the left lateral decubitus position. An Olympus gastroscope was carefully passed along the posterior oropharynx. Upon entry into the proximal esophagus, a mild stricture was identified consistent with hypertensive upper esophageal sphincter. The stomach was entered. The scope was passed to the second portion and third portion of the duodenum was unremarkable. Retroflexion of the scope confirmed Hill grade 2 lower esophageal valve with recurrent diaphragmatic hiatal hernia. A guidewire was placed through the scope into the stomach. The scope was removed. A 57-[place] rigid dilator was placed to 50 cm from the incisors. The dilator was left in place between 2-3 minutes. The dilator and guidewire were removed. The scope was reentered along the proximal esophagus whereby the stricture had resolved of the upper esophagus. No full-thickness injury was found along the mucosa. The stomach was desufflated. The patient tolerated the procedure well. FINDINGS: Squamocolumnar junction 35 cm from the incisors. Diaphragmatic hiatus at 37 cm. Diaphragmatic hiatal hernia 2 cm, sliding-type Hill grade 2 lower esophageal valve. LA grade B erosive esophagitis. Hypertensive upper esophageal sphincter dilated to 57 [place] RECOMMENDATIONS: Upper endoscopy with dilation as needed.
--- NOTE | 2024-04-21 08:04 | P.PCN ---
Date of Procedure: 04/21/24 Description of Procedure: PREOPERATIVE DIAGNOSIS: Personal history of colon polyps Colonoscopy screening. POSTOPERATIVE DIAGNOSIS: Sigmoid stricture due to diverticulosis OPERATION: Colonoscopy to the sigmoid colon SURGEON: Stella Cazares MD. ANESTHESIA: MAC. INDICATIONS: The patient is a 53-year-old female who presents for colonoscopy screening. Last colonoscopy 5 years. Benefits and risks were described and informed consent was obtained. DESCRIPTION OF PROCEDURE: The patient had undergone GoLytely prep. The patient had been brought into the operating room and laid in the left lateral decubitus position. After adequate intravenous sedation, the rectum was examined with 2% lidocaine jelly. No external hemorrhoids were encountered. The rectal tone was within normal limits. No lesions were palpated in the rectal vault. An Olympus colonoscope was advanced through tortuous sigmoid colon requiring abdominal wall pressure. Despite multiple maneuvers scope passed to the sigmoid colon. The prep was excellent to the sigmoid colon. Moderate severe scattered diverticulosis was encountered. The colon was desufflated. The patient had tolerated the procedure well. Withdrawal time was over 6 minutes. FINDINGS: Aronchick preparation quality scale 1 (1-5) No internal hemorrhoids No external prolapsed hemorrhoids No arteriovenous malformations. Moderate to severe sigmoid diverticulosis with stricture at 30 cm from the anal verge but preventing advancement of the scope Highly redundant sigmoid colon requiring abdominal wall pressure No focal colitis to the sigmoid colon RECOMMENDATIONS: Recommend barium enema due to sigmoid stricture Recommend partial colectomy for sigmoid stricture Plan - Discharge Summary Discharge Rx Participant: No New Discharge Prescriptions: Continue Spironolactone 100 mg PO DAILY Omeprazole 20 mg PO DAILY Cyanocobalamin [Vitamin B-12 Injection] 1,000 mcg SQ Q30D Estriol/Estradiol 80-20% (Progesterone/Testosterone 1.8-80-1mg) [place] 1 clinton SL DAILY [place]-3/Dha/Epa/Fish Oil [Fish Oil 1,000 mg Softgel] 2 each PO DAILY Multivitamin/Iron/Folic Acid [Centrum Women Tablet] 1 tab PO DAILY Iron,Carbonyl/Ascorbic Acid [Vitron-C Tablet] 1 each PO DAILY Biotin 10 mg PO DAILY Amoxicillin 500 mg PO TID Acetylcysteine [Nac] 500 mg PO DAILY Thyroid,Pork [Refrigeration Operator Thyroid] 60 mg PO QAM Estradiol Cream [Estrace Cream 0.01%] 1 gm VAGINAL DIRECTED Albuterol Inhaler [Ventolin Hfa Inhaler] 1 puff INHALATION RT-Q4H PRN PRN Reason: Shortness Of Breath Turmeric Root Extract [Turmeric] 500 mg PO DAILY Fenugreek Supplement 1 dose PO DAILY Vitamin D3/Vitamin K2 (Mk4) [Vitamin K2 Plus D3 Tablet] 1 each PO DAILY Discharge Medication List Spironolactone 100 mg PO DAILY 06/05/18 [History] Albuterol Inhaler [Ventolin Hfa Inhaler] 1 puff INHALATION RT-Q4H PRN 03/11/24 [History] Cyanocobalamin [Vitamin B-12 Injection] 1,000 mcg SQ Q30D 03/11/24 [History] Estradiol Cream [Estrace Cream 0.01%] 1 gm VAGINAL DIRECTED 03/11/24 [History] Estriol/Estradiol 80-20% (Progesterone/Testosterone 1.8-80-1mg) [place] 1 clinton SL DAILY 03/11/24 [History] Omeprazole 20 mg PO DAILY 03/11/24 [History] Thyroid,Pork [Refrigeration Operator Thyroid] 60 mg PO QAM 03/11/24 [History] Biotin 10 mg PO DAILY 04/19/24 [History] Fenugreek Supplement 1 dose PO DAILY 04/19/24 [History] Iron,Carbonyl/Ascorbic Acid [Vitron-C Tablet] 1 each PO DAILY 04/19/24 [History] Multivitamin/Iron/Folic Acid [Centrum Women Tablet] 1 tab PO DAILY 04/19/24 [History] [place]-3/Dha/Epa/Fish Oil [Fish Oil 1,000 mg Softgel] 2 each PO DAILY 04/19/24 [History] Turmeric Root Extract [Turmeric] 500 mg PO DAILY 04/19/24 [History] Vitamin D3/Vitamin K2 (Mk4) [Vitamin K2 Plus D3 Tablet] 1 each PO DAILY 04/19/24 [History] Acetylcysteine [Nac] 500 mg PO DAILY 04/20/24 [History] Amoxicillin 500 mg PO TID 04/20/24 [History] Follow up Appointment(s)/Referral(s): Stella Cazares MD [STAFF PHYSICIAN] - 05/18/24 1:45 pm Patient Instructions/Handouts: Diverticulosis (GEN), Hiatal Hernia (DC) Activity/Diet/Wound Care/Special Instructions: Follow-up in the office regarding barium enema Discharge Disposition: HOME SELF-CARE
[2024-04-21 10:39] LABS: Glucose,Whole Blood 98 mg/dL (70-110)
[2024-04-21 10:58] LABS: Glucose,Whole Blood 97 mg/dL (70-110)
[2024-04-21] MEDS: hydrALAZINE HCL 20 MG/ML 1 ML VIAL IVP STA (11:25)
[2024-04-21 11:30] VITALS: RESP 16
[2024-04-21] MEDS: LABETALOL SYRINGE 5 MG/ML (4 ML SYR) IVP STA (11:52)
[2024-04-21 12:17] VITALS: BP 148/76; PULSE 80
== END 2024-04-21 12:42 | disposition home or self-care (01) ==
LOC: ORWHC2ENDO 06:31
PROVIDERS: ATTEND Surgery Plastic and Reconstructive Surgery
DX: Z12.11 Encounter for screening for malignant neoplasm of colon (principal); K57.30 Diverticulosis of large intestine without perforation or abscess without bleeding; K63.89 Other specified diseases of intestine; K56.699 Other intestinal obstruction unspecified as to partial versus complete obstruction; K44.9 Diaphragmatic hernia without obstruction or gangrene; K22.89 Other specified disease of esophagus; K21.00 Gastro-esophageal reflux disease with esophagitis, without bleeding; K22.2 Esophageal obstruction; Z86.0100 Personal history of colon polyps, unspecified; J45.909 Unspecified asthma, uncomplicated; I10 Essential (primary) hypertension; F41.9 Anxiety disorder, unspecified; Z87.891 Personal history of nicotine dependence; Z98.890 Other specified postprocedural states; Z90.710 Acquired absence of both cervix and uterus; Z87.19 Personal history of other diseases of the digestive system; Z79.899 Other long term (current) drug therapy
CPT/HCPCS: 43248; J0360; J2704; J1920; G0104

== ENCOUNTER → 2024-04-22 | Outpatient (CLI) | payer MEDICARE ==
--- NOTE | 2024-04-22 14:32 | FL ---
EXAMINATION TYPE: FL barium enema DATE OF EXAM: 04/22/2024 COMPARISON: CT 03/11/2024 CLINICAL INDICATION: Female, 53 years old with history of K56.690 obstruction; PHH, failed colonoscop y due to a sigmoid stricture, history of 3 episodes of diverticulitis. TECHNIQUE: A single contrast barium enema study is performed. A total of 1 minute 25 seconds of flu oroscopic time was utilized during procedure and 47 images obtained. Total dose area product (DAP) i n uGy*m?, mGy*cm? (or similar): 100 mGycm2. . FINDINGS: Education Site Manager view of the abdomen shows nonobstructive pattern but excessive colonic air. Decision is made to proceed with single contrast technique. There is severe diverticular change involving the mid to distal sigmoid colon with secondary irregula rity an some narrowing of the luminal contour. Additional scattered mild diverticular change along th e left side of the colon. There is slight mucosal irregularity along the upper to mid ascending colon on multiple images. This region does not distend as well as adjacent portions of the colon. Otherwise, no evidence of any mass or polyp, obstructing or constricting lesion throughout the remainder of the colon. The terminal ileum was refluxed and appears within normal limits. IMPRESSION: 1. Severe diverticulosis involving the mid to distal sigmoid colon. Luminal irregularity and some shannan rowing may relate to chronic diverticulitis or some post inflammatory scarring. 2. Additional scattered mild diverticular change along the remainder of the left side of the colon. 3. Slight mucosal irregularity involving the upper to mid ascending colon. This region does not diste nd as well as adjacent portions of the colon. Possibly due to spasm. No obvious filling defect is see n. Consider short interval follow-up such as with CT to reassess this region. [facility], , 04/22/2024 2:29 PM
== END | disposition home or self-care (01) ==
LOC: RADFLMAIN 10:27
PROVIDERS: ATTEND Surgery Plastic and Reconstructive Surgery
DX: Z12.11 Encounter for screening for malignant neoplasm of colon (principal); K57.30 Diverticulosis of large intestine without perforation or abscess without bleeding
CPT/HCPCS: 74270

== ENCOUNTER → 2024-06-25 | Outpatient (CLI) | payer MEDICARE ==
[2024-06-25 15:55] LABS: HCT 45.7 % (37.2-46.3); HGB 14.9 g/dL (12.0-15.0); MCH 26.8 pg (27.0-32.0); MCHC 32.6 g/dL (32.0-37.0); MCV 82.3 FL (80.0-97.0); NRBC Per 100 WBC 0 X 10*3/uL (0.00-0.01); Platelet Count 301 X 10*3/uL (140-440); RBC 5.55 X 10*6/uL (4.10-5.20); RDW 14.8 % (11.5-14.5); WBC 9.04 X 10*3/uL (4.50-10.00)
[2024-06-25 16:39] LABS: BUN/Creat Ratio 24.57 Ratio (12.00-20.00); Blood Urea Nitrogen 17.2 mg/dL (9.0-27.0); Calcium 9.8 mg/dL (8.7-10.3); Carbon Dioxide 22.7 mmol/L (21.6-31.8); Chloride 101 mmol/L (96-109); Glucose 111 mg/dL (70-110); Potassium 4.8 mmol/L (3.5-5.5); Sodium 138 mmol/L (135-145)
== END | disposition home or self-care (01) ==
LOC: LABWHC1 09:42
PROVIDERS: ATTEND Colon & Rectal Surgery
DX: Z01.818 Encounter for other preprocedural examination (principal)
CPT/HCPCS: 36415; 80048; 83036; 85027; 86850; 86900; 86901

== ENCOUNTER 2024-08-08 11:02 | Emergency (ER) | payer MEDICARE ==
[2024-08-08 11:21] VITALS: BP 179/101; PULSE 81; RESP 26; TEMP 97.3
[2024-08-08] MEDS: LORazepam 1 MG/0.5 ML VIAL IM STA (11:45)
--- NOTE | 2024-08-08 11:48 | ED ---
SOB HPI - General Chief Complaint: Shortness of Breath Stated Complaint: SOB Time Seen by Provider: 08/08/24 11:42 Source: patient, RN notes reviewed Mode of arrival: ambulatory - History of Present Illness Initial Comments: 53-year-old female with history of esophageal stricture presenting for difficulty swallowing x 2 weeks. States she has had progressive increase in difficulty swallowing over the past 2 weeks and today feels as though she is having difficulty breathing. States she has a history of esophageal strictures that have been "stretched" by Dr. Cazares. States she is feeling very anxious due to the difficulty swallowing. States she has an upcoming appointment with Dr. Gant on Friday. She has been tolerating orals at home. Denies nausea/vomiting. - Related Data Home Medications Medication Instructions Recorded Confirmed Spironolactone 100 mg PO DAILY 06/05/18 04/21/24 Albuterol Inhaler [Ventolin Hfa 1 puff INHALATION RT-Q4H PRN 03/11/24 04/19/24 Inhaler] Cyanocobalamin [Vitamin B-12 1,000 mcg SQ Q30D 03/11/24 04/21/24 Injection] Estradiol Cream [Estrace Cream 1 gm VAGINAL DIRECTED 03/11/24 04/21/24 0.01%] Estriol/Estradiol 80-20% 1 peggy SL DAILY 03/11/24 04/21/24 (Progesterone/Testosterone 1.8-80-1mg) Peggy Omeprazole 20 mg PO DAILY 03/11/24 04/21/24 Thyroid,Pork [International Student Advisor Thyroid] 60 mg PO QAM 03/11/24 04/21/24 Biotin 10 mg PO DAILY 04/19/24 04/21/24 Fenugreek Supplement 1 dose PO DAILY 04/19/24 04/21/24 Iron,Carbonyl/Ascorbic Acid 1 each PO DAILY 04/19/24 04/19/24 [Vitron-C Tablet] Multivitamin/Iron/Folic Acid 1 tab PO DAILY 04/19/24 04/19/24 [Centrum Women Tablet] [place]-3/Dha/Epa/Fish Oil [Fish Oil 2 each PO DAILY 04/19/24 04/21/24 1,000 mg Softgel] Turmeric Root Extract [Turmeric] 500 mg PO DAILY 04/19/24 04/21/24 Vitamin D3/Vitamin K2 (Mk4) 1 each PO DAILY 04/19/24 04/21/24 [Vitamin K2 Plus D3 Tablet] Acetylcysteine [Nac] 500 mg PO DAILY 04/20/24 04/21/24 Amoxicillin 500 mg PO TID 04/20/24 04/21/24 Previous Rx's Medication Instructions Recorded LORazepam [Ativan] 1 mg PO TID 3 Days #9 tab 08/08/24 Allergies Allergy/AdvReac Type Severity Reaction Status Date / Time gluten Allergy Anaphylaxis Verified 08/08/24 11:20 wheat Allergy Anaphylaxis Verified 08/08/24 11:20 Review of Systems ROS Statement: Those systems with pertinent positive or pertinent negative responses have been documented in the HPI. ROS Other: All systems not noted in ROS Statement are negative. Past Medical History Past Medical History: Asthma, GERD/Reflux Additional Past Medical History / Comment(s): Interstitial Cystitis, Diverticulitis, HIATAL HERNIA History of Any Multi-Drug Resistant Organisms: None Reported Past Surgical History: Bariatric Surgery, Hysterectomy Additional Past Surgical History / Comment(s): Hiatal hernia, Lapband 2009, EGD/colonoscopy 02/15/14, hernia repair 06/15/21, part of bowels removed 08/11 Past Anesthesia/Blood Transfusion Reactions: Previous Problems w/ Anesthesia Additional Past Anesthesia/Blood Transfusion Reaction / Comment(s): Trouble breathing after intubation removed with diff breathing and swallowing Past Psychological History: Anxiety Smoking Status: Former smoker - Past Family History Mother Family Medical History: Cancer Father Family Medical History: Deep Vein Thrombosis (DVT) General Exam General appearance: alert, in no apparent distress, anxious Head exam: Present: atraumatic, normocephalic, normal inspection Eye exam: Present: normal appearance, PERRL, EOMI. Absent: scleral icterus, conjunctival injection, periorbital swelling ENT exam: Present: normal exam, normal oropharynx, mucous membranes moist Neck exam: Present: normal inspection. Absent: tenderness, meningismus, lymphadenopathy Respiratory exam: Present: normal lung sounds bilaterally. Absent: respiratory distress, wheezes, rales, rhonchi, stridor Cardiovascular Exam: Present: regular rate, normal rhythm, normal heart sounds. Absent: systolic murmur, diastolic murmur, rubs, gallop, clicks Neurological exam: Present: alert, oriented X3 Psychiatric exam: Present: normal affect, normal mood Skin exam: Present: warm, dry, intact, normal color. Absent: rash Course Vital Signs 08/08/24 08/08/24 11:17 12:01 Temperature 97.3 F L Pulse Rate 81 Respiratory 26 H Rate Blood Pressure 179/101 O2 Sat by Pulse 99 99 Oximetry Medical Decision Making - Medical Decision Making Was pt. sent in by a medical professional or institution (, [facility] [employer], urgent care, hospital, or halfway...) When possible be specific @ -No Did you speak to anyone other than the patient for history (EMS, parent, family, police, friend...)? What history was obtained from this source @ -No Did you review nursing and triage notes (agree or disagree)? Why? @ -I reviewed and agree with nursing and triage notes Were old charts reviewed (outside hosp., previous admission, EMS record, old EKG, old radiological studies, urgent care reports/EKG's, halfway records)? Report findings @ -No old charts were reviewed Differential Diagnosis (chest pain, altered mental status, abdominal pain women, abdominal pain men, vaginal bleeding, weakness, fever, dyspnea, syncope, headache, dizziness, GI bleed, back pain, seizure, CVA, palpatations, mental health, musculoskeletal)? @ -Esophageal stricture, anaphylaxis, allergic reaction, anxiety, panic attack EKG interpreted by me (3pts min.). @ -None X-rays interpreted by me (1pt min.). @ -None done CT interpreted by me (1pt min.). @ -None done U/S interpreted by me (1pt. min.). @ -None done What testing was considered but not performed or refused? (CT, X-rays, U/S, labs)? Why? @ -None What meds were considered but not given or refused? Why? @ -None Did you discuss the management of the patient with other professionals (professionals i.e. , [facility] [employer], lab, RT, psych nurse, web content & social media manager, shank rander, teacher, catapult and arresting gear officer, telephonic case manager)? Give summary @ -No Was smoking cessation discussed for >3mins.? @ -No Was critical care preformed (if so, how long)? @ -No Were there social determinants of health that impacted care today? How? (Homelessness, low income, unemployed, alcoholism, drug addiction, transportation, low edu. Level, literacy, decrease access to med. care, half-way, rehab)? @ -No Was there de-escalation of care discussed even if they declined (Discuss DNR or withdrawal of care, Hospice)? DNR status @ -No What co-morbidities impacted this encounter? (DM, HTN, Smoking, COPD, CAD, Cancer, CVA, ARF, Chemo, Hep., AIDS, mental health diagnosis, sleep apnea, morbid obesity)? @ -None Was patient admitted / discharged? Hospital course, mention meds given and route, prescriptions, significant lab abnormalities, going to OR and other pertinent info. @ - discharge. 53-year-old female with history of esophageal strictures presenting for difficulty swallowing x 2 weeks. States it now feels very anxious and feels like her throat was closing. Patient appears anxious. Oropharynx unremarkable, no lip or tongue swelling. Provided with dose of Ativan. Upon reevaluation, patient reports significant improvement of symptoms. I highly suspect patient was having an anxiety attack secondary to the sensation of esophageal stricture. Patient is tolerating orals well. No difficulty breathing or swallowing. Patient has a follow-up appointment with Dr. Gant in 2 days. Provided with short course of Ativan to use at home as needed. Advised to eat soft foods and cut up meats very small. Case was discussed with my ED attending Dr. Verdin. Undiagnosed new problem with uncertain prognosis? @ -No Drug Therapy requiring intensive monitoring for toxicity (Heparin, Nitro, Insulin, Cardizem)? @ -No Were any procedures done? @ -No Diagnosis/symptom? @ -Esophageal stricture, anxiety attack Acute, or Chronic, or Acute on Chronic? @ -Acute Uncomplicated (without systemic symptoms) or Complicated (systemic symptoms)? @ -Complicated Side effects of treatment? @ -No Exacerbation, Progression, or Severe Exacerbation? @ -No Poses a threat to life or bodily function? How? (Chest pain, [place], [place], pneumonia, PE, COPD, DKA, ARF, appy, cholecystitis, CVA, Diverticulitis, Homicidal, Suicidal, threat to staff... and all critical care pts) @ -Not at this time Disposition Clinical Impression: Esophageal stricture, Anxiety Disposition: HOME SELF-CARE Condition: Stable Instructions (If sedation given, give patient instructions): Esophageal Stricture (ED) Additional Instructions: Take Ativan as needed. Consume soft foods until follow-up appointment. If you are going to eat meat, cut into very small pieces. Please return to the Emergency Department if symptoms worsen or any other concerns. Prescriptions: LORazepam [Ativan] 1 mg PO TID 3 Days #9 tab Is patient prescribed a controlled substance at d/c from ED?: Yes When asked, does pt state using other controlled substances?: No If prescribed controlled substance>3 days was MAPS reviewed?: Prescribed <3 Days If opioid is for acute pain is fill amount 7 days or less?: Yes Referrals: Roxanne Hoover MD [Primary Care Provider] - 1-2 days Time of Disposition: 12:25
== END 2024-08-08 12:34 | disposition home or self-care (01) ==
LOC: EC 11:02
DX: F41.9 Anxiety disorder, unspecified (principal); K22.2 Esophageal obstruction; Z87.891 Personal history of nicotine dependence; Z91.018 Allergy to other foods; Z88.8 Allergy status to other drugs, medicaments and biological substances
CPT/HCPCS: 99284; 96372; J2060

== ENCOUNTER → 2024-08-13 | Outpatient (CLI) | payer MEDICARE ==
--- NOTE | 2024-08-13 14:57 | FL ---
Exam Date: 08/13/2024 1:16 PM. Modified barium swallow for dysphagia. Consistencies administered: Various consistency of barium. No images were sent to PACS. Please see speech pathology report. DAP: Not recorded mGym2 Gycm2 [facility], , 08/13/2024 2:55 PM
== END | disposition home or self-care (01) ==
LOC: RADFLMAIN 12:04
PROVIDERS: ATTEND Internal Medicine Gastroenterology
DX: R09.89 Other specified symptoms and signs involving the circulatory and respiratory systems (principal)
CPT/HCPCS: 74230

== ENCOUNTER → 2024-08-16 | Outpatient (CLI) | payer MEDICARE ==
--- NOTE | 2024-08-16 12:21 | FL ---
EXAMINATION TYPE: FL barium swallow DATE OF EXAM: 08/16/2024 8:52 AM COMPARISON: 06/15/2021 CLINICAL INDICATION: Female, 53 years old with history of R09.89 SPEC SYMPT SIGN INVOLV CIRCULATORY R ESPIT S, patient with history of prior lap band which has been removed. Worsening difficulty swallowi ng and history of previous esophageal dilatation indicated by the patient. Total Flouroscopy Time: 2 minutes 10 seconds Total DAP: 100 mGycm2 52 images obtained. FINDINGS: The swallowing mechanism is normal and hypopharyngeal anatomy is preserved. The cervical and thoracic portions have a normal course and caliber. Mild to moderate tertiary peristaltic waves are demonstrated. In addition, there is stagnation of con trast along the proximal third esophagus when the patient is prone/supine. The mucosa is normal and no persistent filling defect is encountered. There is a tiny sliding hiatal hernia present. No gastroesophageal reflux was seen during the course of the exam. IMPRESSION: 1. There is stagnation of contrast along the proximal third esophagus when the patient is prone/supin e. The patient indicates this region as being symptomatic. No stricture or discrete mucosal lesion is seen. Some focal esophageal dysmotility is suggested. 2. Tiny sliding hiatal hernia. [facility], , 08/16/2024 12:18 PM
== END | disposition home or self-care (01) ==
LOC: RADFLMAIN 07:54
PROVIDERS: ATTEND Internal Medicine Gastroenterology
DX: K44.9 Diaphragmatic hernia without obstruction or gangrene (principal); R09.89 Other specified symptoms and signs involving the circulatory and respiratory systems
CPT/HCPCS: 74220